=== PATIENT | female | born 1990 | race Two or more races ===

== ENCOUNTER 2023-12-28 15:29 | Inpatient (IN) | payer MEDICAID ==
[~2023-12-28] VITALS: Ht 149.9 cm; Wt 79.2 kg
[2023-12-28] MEDS: guaiFENesin-CODEINE Liq 5 ML UD PO ONE (16:59)
[2023-12-28] MEDS: DexAMETHasone SOD PHOS 10MG/1ML VIAL INJ IM ONE (16:59)
[2023-12-28 17:46] LABS: Basophils # (auto) 0.1 10 ^3/uL (0-0.2); Basophils % (auto) 0.7 % (0.0-2.0); Eosinophils # (auto) 0 10 ^3/uL (0-0.8); Eosinophils % (auto) 0.4 % (0.0-7.0); Hematocrit 31.1 % (36.0-46.0); Hemoglobin 9.4 g/dL (12.2-16.2); Lymphocytes # (auto) 1.5 10 ^3/uL (0.4-5.4); Lymphocytes % (auto) 14.6 % (10.0-50.0); Mean Corpuscular Hemoglobin 24.5 pg (28.0-32.0); Mean Corpuscular Hgb Conc. 30.3 g/dL (32.0-36.0); Mean Corpuscular Volume 80.8 fL (80.0-100.0); Monocytes # (auto) 0.6 10 ^3/uL (0-1.3); Monocytes % (auto) 5.4 % (0.0-12.0); Neutrophils # (auto) 8.2 10 ^3/uL (1.6-8.6); Neutrophils % (auto) 78.9 % (37.0-80.0); Nucleated Red Blood Cells % 0.3 %; Red Blood Cells 3.85 10^6/uL (4.0-5.20); Red Cell Distribution Width 17.6 % (11.8-14.3); White Blood Cell 10.4 10^3/uL (4.4-10.8)
[2023-12-28 17:59] LABS: Alanine Aminotransferase 127 U/L (7-40); Albumin 4.5 g/dL (3.2-4.8); Alkaline Phosphatase 469 U/L (46-116); Anion Gap 11 (5-15); Aspartate Aminotransferase 197 U/L (13-40); BUN/Creatinine Ratio 11.8 (10.0-20.0); Bilirubin, Total 1.9 mg/dL (0.2-1.0); Blood Urea Nitrogen 10 mg/dL (9-23); Calcium 9.3 mg/dL (8.7-10.4); Carbon Dioxide 22 mmol/L (20-30); Chloride 106 mmol/L (98-107); Glucose 113 mg/dL (74-106); Sodium 139 mmol/L (136-145); Total Protein 6.7 g/dL (5.7-8.2)
[2023-12-28] MEDS: ALBUTEROL SULF 2.5 MG/0.5ML(0.5%) NEB SOLN NEB ONE (18:10)
[2023-12-28] MEDS: IPRATROPIUM BROM 0.5 MG/2.5ML INH SOL NEB ONE (18:10)
[2023-12-28] MEDS: FUROSEMIDE 40 MG/4 ML VIAL IV ONE (20:38)
[2023-12-28 22:09] LABS: Urine Bacteria NONE SEEN /hpf (None Seen); Urine Blood TRACE /uL (Negative); Urine Clarity HAZY (Clear); Urine Color Yellow (Yellow); Urine Mucus FEW (None Seen); Urine Protein, UAD 2+ (Negative); Urine Specific Gravity 1.023 (1.001-1.035); Urine Urobilinogen Normal (Negative); Urine WBC 30 /hpf (0 - 5); Urine pH 5.5 (5.0-8.0)
[2023-12-28] MEDS ORDERED: IPRATROPIUM BROM 0.5 MG/2.5ML INH SOL NEB PRN (22:15)
[2023-12-28] MEDS ORDERED: ACETAMINOPHEN 325 MG TAB PO PRN (22:15)
[2023-12-28] MEDS ORDERED: ONDANSETRON HCL 4 MG/2 ML VIAL IV PRN (22:15)
[2023-12-28] MEDS ORDERED: ALBUTEROL SULF 2.5 MG/0.5ML(0.5%) NEB SOLN NEB PRN (22:15)
[2023-12-28 22:55] VITALS: BP 126/90; PULSE 96; RESP 20; TEMP 98.2; O2SAT 96
[2023-12-29] MEDS ORDERED: MORPHINE SULFATE INJ 2 MG/ml SYRG IV PRN
[2023-12-29] MEDS ORDERED: NITROGLYCERIN 0.4 MG SL TAB SL PRN
[2023-12-29] MEDS: HYDROcodone-ACET 5/325MG TAB PO PRN (04:30)
[2023-12-29 05:41] LABS: Basophils # (auto) 0 10 ^3/uL (0-0.2); Basophils % (auto) 0.2 % (0.0-2.0); Eosinophils # (auto) 0 10 ^3/uL (0-0.8); Mean Corpuscular Hemoglobin 24.8 pg (28.0-32.0); Monocytes # (auto) 0.2 10 ^3/uL (0-1.3); Red Cell Distribution Width 17.5 % (11.8-14.3)
[2023-12-29 05:43] LABS: Hemoglobin 10.3 g/dL (12.2-16.2); Lymphocytes # (auto) 0.8 10 ^3/uL (0.4-5.4); Lymphocytes % (auto) 7.3 % (10.0-50.0); Mean Corpuscular Hgb Conc. 31.2 g/dL (32.0-36.0); Mean Corpuscular Volume 79.4 fL (80.0-100.0); Monocytes % (auto) 1.8 % (0.0-12.0); Neutrophils # (auto) 10.5 10 ^3/uL (1.6-8.6); Neutrophils % (auto) 90.7 % (37.0-80.0); Red Blood Cells 4.15 10^6/uL (4.0-5.20); White Blood Cell 11.5 10^3/uL (4.4-10.8)
[2023-12-29 05:58] LABS: Alanine Aminotransferase 119 U/L (7-40); Alkaline Phosphatase 493 U/L (46-116); Anion Gap 12 (5-15); Aspartate Aminotransferase 119 U/L (13-40); BUN/Creatinine Ratio 12.8 (10.0-20.0); Blood Urea Nitrogen 11 mg/dL (9-23); Calcium 9.7 mg/dL (8.7-10.4); Carbon Dioxide 23 mmol/L (20-30); Chloride 104 mmol/L (98-107); Glucose 134 mg/dL (74-106); Potassium 3.9 mmol/L (3.5-5.1); Sodium 139 mmol/L (136-145)
[2023-12-29 05:59] LABS: Albumin 4.9 g/dL (3.2-4.8); Bilirubin, Total 2.1 mg/dL (0.2-1.0); Total Protein 7.5 g/dL (5.7-8.2)
[2023-12-29] MEDS: SODIUM CHLOR 0.9% PF (SALINE LOCK) 10ML VIAL/SYR IV SCH (06:02)
[2023-12-29 06:08] VITALS: O2SAT 98
[2023-12-29 08:21] VITALS: PULSE 88; RESP 18; O2SAT 94
[2023-12-29] MEDS: FUROSEMIDE 40 MG/4 ML VIAL IV SCH (10:00)
[2023-12-29] MEDS: DexAMETHasone SOD PHOS 10MG/1ML VIAL INJ IV SCH (10:13)
[2023-12-29] MEDS: cefTRIAXone 1GM/50ML D5W 50 ML IV SCH (12:03)
[2023-12-29 20:13] VITALS: PULSE 93; RESP 12; O2SAT 96
[2023-12-29] MEDS: MIDODRINE HCL 10 MG TAB PO SCH (20:23)
[2023-12-29] MEDS: LEVOTHYROXINE SODIUM 50 MCG TAB PO ONE (20:23)
[2023-12-30] VITALS (14 sets, daily range): BP systolic 104–136; BP diastolic 62–90; PULSE 75–95; RESP 16–19; TEMP 97.4–98.2; O2SAT 96–100
[2023-12-30] MEDS ORDERED: METO25TA36 PO (00:29)
[2023-12-30] MEDS ORDERED: LEV100T PO (00:29)
[2023-12-30] MEDS ORDERED: FURO40TA4 PO (00:29)
[2023-12-30] MEDS ORDERED: MID10T PO (00:29)
[2023-12-30] MEDS ORDERED: DAPA1TAB4 PO (00:29)
[2023-12-30] MEDS ORDERED: LOSA-533 PO (00:29)
[2023-12-30] MEDS ORDERED: MECL12.586 PO (00:29)
[2023-12-30] MEDS: METOPROLOL TARTRATE 25 MG TAB PO SCH (00:37)
[2023-12-30] MEDS: LEVOTHYROXINE SODIUM 50 MCG TAB PO SCH (06:53)
[2023-12-30 12:10] LABS: Basophils # (auto) 0 10 ^3/uL (0-0.2); Basophils % (auto) 0.1 % (0.0-2.0); Eosinophils # (auto) 0 10 ^3/uL (0-0.8); Hematocrit 33.8 % (36.0-46.0); Hemoglobin 10.3 g/dL (12.2-16.2); Lymphocytes # (auto) 1.3 10 ^3/uL (0.4-5.4); Lymphocytes % (auto) 6.2 % (10.0-50.0); Mean Corpuscular Hemoglobin 24.2 pg (28.0-32.0); Mean Corpuscular Hgb Conc. 30.4 g/dL (32.0-36.0); Mean Corpuscular Volume 79.7 fL (80.0-100.0); Monocytes # (auto) 0.6 10 ^3/uL (0-1.3); Monocytes % (auto) 3.1 % (0.0-12.0); Neutrophils # (auto) 18.4 10 ^3/uL (1.6-8.6); Neutrophils % (auto) 90.6 % (37.0-80.0); Nucleated Red Blood Cells % 0.1 %; Red Blood Cells 4.24 10^6/uL (4.0-5.20); Red Cell Distribution Width 17.8 % (11.8-14.3); White Blood Cell 20.3 10^3/uL (4.4-10.8)
[2023-12-30 12:24] LABS: Anion Gap 9 (5-15); Carbon Dioxide 27 mmol/L (20-30); Chloride 102 mmol/L (98-107); Potassium 3.9 mmol/L (3.5-5.1); Sodium 138 mmol/L (136-145)
[2023-12-30 12:26] LABS: Calcium 9.6 mg/dL (8.5-10.1)
[2023-12-30 12:30] LABS: Glucose 220 mg/dL (74-106); Triglycerides 108 mg/dL (< 150)
[2023-12-30 12:31] LABS: BUN/Creatinine Ratio 19.3 (10.0-20.0); Blood Urea Nitrogen 16 mg/dL (9-23); LDL Cholesterol 75 mg/dL (< 100)
[2023-12-30 12:33] LABS: Cholesterol 116 mg/dL (< 200); HDL Cholesterol 27 mg/dL (40-59)
[2023-12-30 12:48] LABS: Amphetamine Screen, Urine Neg (NEGATIVE); Barbiturate Scree,Urine Neg (NEGATIVE); Benzodiazephine Screen, Urine Neg (NEGATIVE); Cocaine Screen, Urine Neg (NEGATIVE); Opiate Scree,Urine Neg (NEGATIVE)
[2023-12-30 12:49] LABS: Cannabinoid Screen, Urine Pos (NEGATIVE); Phencyclidine Screen, Urine Neg (NEGATIVE)
[2023-12-30] MEDS: SPIRONOLACTONE 25 MG TAB PO SCH (17:50)
[2023-12-30] MEDS: FUROSEMIDE 40 MG/4 ML VIAL IV SCH (22:30)
[2023-12-30] MEDS: SACUBITRIL-VALSARTAN 24mg/26mg TAB PO SCH (22:32)
[2023-12-31] VITALS (16 sets, daily range): BP systolic 108–135; BP diastolic 56–97; PULSE 68–84; RESP 15–19; TEMP 97.6–98.3; O2SAT 96–100
[2023-12-31 06:05] LABS: Chloride 102 mmol/L (98-107); Sodium 138 mmol/L (136-145)
[2023-12-31 06:06] LABS: Anion Gap 7 (5-15); Carbon Dioxide 29 mmol/L (20-30)
[2023-12-31 06:07] LABS: Basophils # (auto) 0 10 ^3/uL (0-0.2); Basophils % (auto) 0.1 % (0.0-2.0); Calcium 9.1 mg/dL (8.5-10.1); Eosinophils # (auto) 0 10 ^3/uL (0-0.8); Hemoglobin 10.2 g/dL (12.2-16.2); Lymphocytes # (auto) 1.7 10 ^3/uL (0.4-5.4); Lymphocytes % (auto) 10.3 % (10.0-50.0); Monocytes # (auto) 0.6 10 ^3/uL (0-1.3); Monocytes % (auto) 3.4 % (0.0-12.0); Neutrophils % (auto) 86.2 % (37.0-80.0); Nucleated Red Blood Cells % 0.1 %
[2023-12-31 06:11] LABS: BUN/Creatinine Ratio 22.7 (10.0-20.0); Blood Urea Nitrogen 17 mg/dL (9-23); Glucose 156 mg/dL (74-106); Hematocrit 32.9 % (36.0-46.0); INR 1.11 (0.9-1.15); Mean Corpuscular Hemoglobin 24.7 pg (28.0-32.0); Mean Corpuscular Volume 79.6 fL (80.0-100.0); Neutrophils # (auto) 14.5 10 ^3/uL (1.6-8.6); Partial Thromboplastin Time 22.9 SEC (24.5-34.5); Prothrombin Time 11.6 sec (9.3-11.8); Red Blood Cells 4.14 10^6/uL (4.0-5.20); Red Cell Distribution Width 17.1 % (11.8-14.3); White Blood Cell 16.8 10^3/uL (4.4-10.8)
[2023-12-31] MEDS: IOHEXOL 350 MG/ML 100ML IJ ONE (08:23)
[2023-12-31] MEDS: LIDOCAINE 2%HCL (LOCAL ANESTH.) INJ 20ML MDV ONE (08:23)
[2023-12-31] MEDS: HEPARIN IN NS 1000Units/500mL 1,500 ML ONE (08:23)
[2023-12-31] MEDS: VERAPAMIL 2.5MG/ML INJ 2ML VIAL IV ONE (11:23)
[2023-12-31] MEDS: ANGIOMAX 250 MG VIAL IV ONE (11:23)
[2023-12-31] MEDS: SODIUM CHL 0.9% 0 ML ONE (11:23)
[2023-12-31] MEDS: MIDAZOLAM HCL 2MG/2ML 2ml VIAL (1mg/ml) ONE (11:23)
[2023-12-31] MEDS: IODIXANOL 320MG/ML 100ML BTL IV ONE (11:23)
[2023-12-31] MEDS: HEPARIN SODIUM (PORCINE) 5000 UNITS/ML 1ML VIAL ONE (11:23)
[2023-12-31] MEDS: fentaNYL CITRATE 100 MCG/2 ML VL ONE (11:23)
[2023-12-31] MEDS: EMPAGLIFLOZIN 10 MG TAB PO SCH (13:46)
[2023-12-31] MEDS: INFLUENZA QUAD 2023-2024 0.5 ML SYRG IM ONE (14:14)
[2023-12-31] MEDS: CEFEPIME 1GM/ 50ML 50 ML IV SCH (14:15)
[2023-12-31] MEDS: LEVOTHYROXINE SODIUM 100 MCG/5 ML INJ IV SCH (14:15)
[2023-12-31] MEDS: FERROUS SULFATE 325mg EC TAB PO SCH (17:09)
[2023-12-31] MEDS: DOCUSATE SOD 100 MG CAP PO PRN (21:39)
[2024-01-01] VITALS (10 sets, daily range): BP systolic 94–118; BP diastolic 58–77; PULSE 72–100; RESP 16–20; TEMP 97–98; O2SAT 95–100
[2024-01-01 05:49] LABS: Basophils # (auto) 0 10 ^3/uL (0-0.2); Basophils % (auto) 0.2 % (0.0-2.0); Eosinophils # (auto) 0 10 ^3/uL (0-0.8); Eosinophils % (auto) 0.3 % (0.0-7.0); Neutrophils # (auto) 8.6 10 ^3/uL (1.6-8.6); Nucleated Red Blood Cells % 0.1 %
[2024-01-01 05:50] LABS: Red Cell Distribution Width 17.4 % (11.8-14.3)
[2024-01-01 05:52] LABS: Hematocrit 37.5 % (36.0-46.0); Hemoglobin 11.7 g/dL (12.2-16.2); Lymphocytes # (auto) 2.7 10 ^3/uL (0.4-5.4); Lymphocytes % (auto) 22.1 % (10.0-50.0); Mean Corpuscular Hemoglobin 24.8 pg (28.0-32.0); Mean Corpuscular Hgb Conc. 31.1 g/dL (32.0-36.0); Mean Corpuscular Volume 79.7 fL (80.0-100.0); Monocytes # (auto) 0.8 10 ^3/uL (0-1.3); Monocytes % (auto) 6.7 % (0.0-12.0); Neutrophils % (auto) 70.7 % (37.0-80.0); Red Blood Cells 4.71 10^6/uL (4.0-5.20); White Blood Cell 12.1 10^3/uL (4.4-10.8)
[2024-01-01 06:01] LABS: Chloride 100 mmol/L (98-107); Potassium 3.8 mmol/L (3.5-5.1); Sodium 138 mmol/L (136-145)
[2024-01-01 06:02] LABS: Anion Gap 6 (5-15); Calcium 9.4 mg/dL (8.5-10.1); Carbon Dioxide 32 mmol/L (20-30)
[2024-01-01 06:07] LABS: BUN/Creatinine Ratio 20.3 (10.0-20.0); Blood Urea Nitrogen 16 mg/dL (9-23); Glucose 110 mg/dL (74-106)
[2024-01-01] MEDS: LEVOTHYROXINE SODIUM 100 MCG/5 ML INJ IV ONE (14:23)
[2024-01-02] VITALS (8 sets, daily range): BP systolic 93–110; BP diastolic 50–69; PULSE 78–90; RESP 16–22; TEMP 97.5–97.9; O2SAT 96–100
[2024-01-02 06:38] LABS: Chloride 99 mmol/L (98-107); Potassium 3.8 mmol/L (3.5-5.1); Sodium 136 mmol/L (136-145)
[2024-01-02 06:39] LABS: Anion Gap 10 (5-15); Carbon Dioxide 27 mmol/L (20-30)
[2024-01-02 06:40] LABS: Calcium 9.3 mg/dL (8.5-10.1)
[2024-01-02 06:44] LABS: BUN/Creatinine Ratio 19.3 (10.0-20.0); Blood Urea Nitrogen 16 mg/dL (9-23); Glucose 108 mg/dL (74-106)
[2024-01-02] MEDS: LEVOTHYROXINE SODIUM 100 MCG/5 ML INJ IV SCH (10:16)
[2024-01-02 14:29] LABS: Basophils # (auto) 0.1 10 ^3/uL (0-0.2); Hemoglobin 12.7 g/dL (12.2-16.2); Lymphocytes # (auto) 2.8 10 ^3/uL (0.4-5.4); Neutrophils # (auto) 9.4 10 ^3/uL (1.6-8.6); Nucleated Red Blood Cells % 0.1 %; Red Cell Distribution Width 17.4 % (11.8-14.3)
[2024-01-02 14:32] LABS: Basophils % (auto) 0.5 % (0.0-2.0); Eosinophils # (auto) 0.1 10 ^3/uL (0-0.8); Eosinophils % (auto) 0.9 % (0.0-7.0); Hematocrit 40.3 % (36.0-46.0); Lymphocytes % (auto) 21.6 % (10.0-50.0); Mean Corpuscular Hemoglobin 24.6 pg (28.0-32.0); Mean Corpuscular Hgb Conc. 31.5 g/dL (32.0-36.0); Mean Corpuscular Volume 78.2 fL (80.0-100.0); Monocytes # (auto) 0.6 10 ^3/uL (0-1.3); Monocytes % (auto) 4.9 % (0.0-12.0); Neutrophils % (auto) 72.1 % (37.0-80.0); Red Blood Cells 5.16 10^6/uL (4.0-5.20)
[2024-01-02] MEDS: LEVOTHYROXINE SODIUM 25 MCG TAB PO ONE (14:38)
[2024-01-02] MEDS: CEPHALEXIN 250 MG CAP PO SCH (18:28)
[2024-01-03 01:00] VITALS: BP 94/56; PULSE 90; RESP 18; TEMP 98; O2SAT 98
[2024-01-03 05:00] VITALS: BP 97/71; PULSE 89; RESP 18; TEMP 97.8; O2SAT 98
[2024-01-03 06:06] LABS: Anion Gap 6 (5-15); Carbon Dioxide 28 mmol/L (20-30); Chloride 99 mmol/L (98-107); Potassium 4.4 mmol/L (3.5-5.1); Sodium 133 mmol/L (136-145)
[2024-01-03 06:08] LABS: Calcium 9.5 mg/dL (8.7-10.4)
[2024-01-03 06:12] LABS: Glucose 105 mg/dL (74-106)
[2024-01-03 06:13] LABS: BUN/Creatinine Ratio 19.4 (10.0-20.0); Blood Urea Nitrogen 18 mg/dL (9-23)
[2024-01-03] MEDS: LEVOTHYROXINE SODIUM 25 MCG TAB PO SCH (06:43)
[2024-01-03 08:00] VITALS: PULSE 85
[2024-01-03 08:28] VITALS: O2SAT 97
[2024-01-03 08:53] VITALS: BP 104/75; PULSE 83; RESP 18; TEMP 97.7; O2SAT 98
[2024-01-03] MEDS: FUROSEMIDE 20 MG TAB PO SCH (09:31)
[2024-01-03] MEDS: METOPROLOL SUCCINATE XL 50 MG TAB PO SCH (09:35)
[2024-01-03] MEDS ORDERED: LEVO75TA6 PO (10:09)
[2024-01-03] MEDS ORDERED: CEPH500C PO (10:09)
[2024-01-03] MEDS ORDERED: FURO40TA4 PO (11:20)
[2024-01-03] MEDS ORDERED: LOSA-533 PO (11:20)
[2024-01-03] MEDS ORDERED: METO25TA36 PO (11:20)
[2024-01-03 12:58] VITALS: BP 105/64; PULSE 90; RESP 20; TEMP 98; O2SAT 94
== END 2024-01-03 17:00 | disposition home or self-care (01) | DRG 192 ==
LOC: ER 15:29 → TELE 23:52 → TELE-WESTW 12-29 22:28
PROVIDERS: ADMIT Nurse Practitioner Family; ATTEND Nurse Practitioner Acute Care
PROC: 4A023N7 Measurement of Cardiac Sampling and Pressure, Left Heart, Percutaneous Approach (ICD-10-PCS; principal; 2023-12-31)
PROC: B211YZZ Fluoroscopy of Multiple Coronary Arteries using Other Contrast (ICD-10-PCS; 2023-12-31)
DX: I11.0 Hypertensive heart disease with heart failure (principal); I42.0 Dilated cardiomyopathy; I50.43 Acute on chronic combined systolic (congestive) and diastolic (congestive) heart failure; L40.50 Arthropathic psoriasis, unspecified; N30.90 Cystitis, unspecified without hematuria; E66.9 Obesity, unspecified; E03.9 Hypothyroidism, unspecified; R73.03 Prediabetes; I34.0 Nonrheumatic mitral (valve) insufficiency; Q96.9 Turner's syndrome, unspecified; Z79.899 Other long term (current) drug therapy; Z68.35 Body mass index [BMI] 35.0-35.9, adult
CPT/HCPCS: 36415; 71045; 76705; 80048; 80053; 80061; 80307; 81001; 83036; 83880; 83970; 84436; 84443; 84480; 84484; 84702; 85025; 85610; 85730; 86850; 86900; 86901; 87040; 87086; 93306; 93458; 99152; G0378; J1100; J2250; J3490; Q9967

== ENCOUNTER 2024-06-27 14:32 | Emergency (ER) | payer MEDICAID ==
[~2024-06-27] VITALS: Ht 149.9 cm; Wt 85.0 kg
[~2024-06-27 14:32] MED LIST: CEPH500C PO; DAPA1TAB4 PO; FURO40TA4 PO; LEVO75TA6 PO; LOSA-533 PO; MECL12.586 PO; METO25TA36 PO; MID10T PO
[2024-06-27 16:09] LABS: Urine Bacteria None Seen /hpf (None Seen)
[2024-06-27 16:30] LABS: Urine Blood TRACE /uL (Negative); Urine Clarity Clear (Clear); Urine Color Yellow (Yellow); Urine Mucus FEW (None Seen); Urine Protein, UAD 1+ (Negative); Urine Specific Gravity 1.026 (1.001-1.035); Urine Urobilinogen Normal (Negative); Urine WBC <1 /hpf (0 - 5)
[2024-06-27 18:29] VITALS: BP 132/101; PULSE 84; RESP 16; TEMP 98.3; O2SAT 97
[2024-06-27] MEDS: KETOROLAC TROMETH 60MG/2ML VIAL IM ONE (18:32)
== END 2024-06-27 18:53 | disposition home or self-care (01) ==
LOC: ER 14:32
DX: M54.50 Low back pain, unspecified (principal); R10.2 Pelvic and perineal pain; R05.9 Cough, unspecified; R09.89 Other specified symptoms and signs involving the circulatory and respiratory systems; M19.90 Unspecified osteoarthritis, unspecified site; E11.9 Type 2 diabetes mellitus without complications; I50.9 Heart failure, unspecified; Z79.899 Other long term (current) drug therapy
CPT/HCPCS: 36415; 81001; 84702; 96372; 99283; J1885

== ENCOUNTER 2024-07-21 15:53 | Emergency (ER) | payer MEDICAID ==
[~2024-07-21] VITALS: Ht 149.9 cm; Wt 90.9 kg
[2024-07-21] MEDS ORDERED: GUAI-41 PO (17:04)
[2024-07-21] MEDS ORDERED: METH4PAK PO (17:04)
[2024-07-21] MEDS ORDERED: MELO7.5T7 PO (17:04)
[2024-07-21] MEDS ORDERED: AUG875T PO (17:04)
[2024-07-21] MEDS ORDERED: PROM1SOL4 PO (17:05)
[2024-07-21] MEDS: HYDROcodone-ACET 5/325MG TAB PO ONE (17:40)
[2024-07-21 17:51] VITALS: BP 122/74; TEMP 97.9
[2024-07-21 17:53] VITALS: PULSE 88; RESP 16; O2SAT 95
== END 2024-07-21 18:28 | disposition home or self-care (01) ==
LOC: ER 16:00
DX: M54.50 Low back pain, unspecified (principal); J01.10 Acute frontal sinusitis, unspecified; I50.9 Heart failure, unspecified; E11.9 Type 2 diabetes mellitus without complications; M19.90 Unspecified osteoarthritis, unspecified site; Z79.899 Other long term (current) drug therapy; Z79.84 Long term (current) use of oral hypoglycemic drugs

== ENCOUNTER 2025-07-06 17:31 | Inpatient (IN) | payer MEDICAID ==
[~2025-07-06] VITALS: Ht 132.1 cm; Wt 91.0 kg
[~2025-07-06 17:31] MED LIST changes: +AUG875T PO; +GUAI-41 PO; +MELO7.5T7 PO; +METH4PAK PO; +PROM1SOL4 PO
--- NOTE | 2025-07-06 18:31 | DVH ---
CHEST RADIOGRAPH Indication: fever, cough, sob Technique: XY CHEST PORTABLE COMPARISON: 12/28/2023 FINDINGS: The cardiac silhouette is enlarged. The lungs demonstrate bilateral patchy airspace opacities. Bilate ral nodular airspace opacities. 5.2 cm right midlung masslike opacity The pulmonary vasculature is pr ominent. There is no pleural effusion. There is no pneumothorax. Mitral valve clip. IMPRESSION: Cardiomegaly with pulmonary vascular congestion and bilateral patchy airspace opacities. Bilateral pulmonary nodular airspace opacities. Follow-up to resolution to exclude underlying mass/ metastatic disease. A 5.2 cm right midlung masslike opacity. Recommend CT chest to characterize.
[2025-07-06 19:12] LABS: Hematocrit 33.9 % (36.0-46.0); Hemoglobin 11.1 g/dL (12.2-16.2); Mean Corpuscular Hemoglobin 24.7 pg (28.0-32.0); Mean Corpuscular Volume 75.6 fL (80.0-100.0); Nucleated Red Blood Cells % 0.1 %
[2025-07-06 19:30] LABS: Anion Gap 13 (5-15); BUN/Creatinine Ratio 8.8 (10.0-20.0); Calcium 9.2 mg/dL (8.7-10.4); Carbon Dioxide 23 mmol/L (20-31); Chloride 99 mmol/L (98-107)
[2025-07-06 19:31] LABS: Bilirubin, Total 0.8 mg/dL (0.2-1.0)
[2025-07-06 19:36] LABS: Alanine Aminotransferase 50 U/L (7-40); Albumin 5.1 g/dL (3.2-4.8); Alkaline Phosphatase 189 U/L (46-116); Blood Urea Nitrogen 8 mg/dL (9-23); Glucose 135 mg/dL (74-106); Potassium 3.4 mmol/L (3.5-5.1); Sodium 135 mmol/L (136-145); Total Protein 8.4 g/dL (5.7-8.2)
[2025-07-06] MEDS: ACETAMINOPHEN 325 MG TAB PO ONE (20:35)
--- NOTE | 2025-07-06 20:57 | ED.PDOC ---
History of Present Illness HPI Comments HPI: 34 y/o F, with PMHx of tai's syndrome, arthritis, thyroid disease, CHF, and DM presents to the ED for CC of flu-like symptoms. Patient states, she has been experiencing flu-like symptoms including: fever, shortness of breath, sore-throat, cough, body-aches, and headaches x3days. Patient further relays, new onset symptoms of right-eye discharge. Patient denies sick contacts, chest pain, fever, or loss of taste and smell. No other symptoms or modifying factors are present at this time. Initial Vitals BP: HR: RR: O2 Sat: Temp: Past Medical history: TAI'S SYNDROME, ARTHRITIS, CHF, DM, THYROID DISEASE Past Surgical history: Mitraclip Medications: DENIES ANY Social History: Denies smoking, ETOH, and drug use. Allergies: NKDA MICHELLE: Multiple complaints, respiratory complaints HPI: Poor Historian. REVIEW OF SYSTEMS: CONSTITUTIONAL: Denies acute: fever, diaphoresis, chills, HEAD: Denies acute: , photophobia Eyes: Denies acute: Double vision, vision loss, eye pain, eye discharge. EARS: Denies acute: tinnitus, hearing loss, ear discharge, ear pain, THROAT: Denies acute: swelling, difficulty swallowing , pain with swallowing, change in voice. NECK: Denies acute: neck pain, neck swelling, stiff neck. HEART: Denies acute : chest pain, palpitations, LUNGS: Denies acute: , wheezing, , hemoptysis ABDOMEN: Denies acute: abdominal pain, Nausea, Vomiting, diarrhea, melena , hematemesis, hematochezia SKIN: Denies acute: rash, redness, lesions, itchiness. EXTREMITIES: Denies acute: calf pain, numbness, tingling, weakness, denies pain in extremity. Denies acute: Low back pain. Neuro: Denies acute: focal neurological deficit, motor or sensory focal neurological deficit, tremors, seizure like activity, confusion, dizziness, change in mental status, loss of bowel or bladder function, cauda equina like symptoms. : Denies acute: dysuria, hematuria, flank pain, increase in urinary frequency. PSYCH: Denies acute: hallucination, suicidal ideation, homicidal ideation. FEMALE: Denies acute: abnormal vaginal bleeding, foul odor, unusual discharge. PHYSICAL EXAM: General: ---moderate-----acute distress, awake and alert. Head: normocephalic, atraumatic. Neck: supple, trachea is midline, no swelling. Throat: Normal phonation. No exudates, no obstruction, no swelling Eyes:, no erythema, no proptosis, no icterus. Right eye purulent discharge with the associated conjunctivitis. Heart: regular rate, regular rhythm, no significant murmur appreciated. Lungs: Mild respiratory distress, Able to speak in full sentences. No wheezing, no rhonchi, no crackles. No stridors Clear to auscultation bilaterally. Abdomen: non tender to palpation, non distended, soft, no guarding, no rebound, + bowel sounds. Obese Neuro: Awake, Alert, oriented to name, self, situation, follows commands GCS=15. Speech is normal. Skin: no petechia, no purpura, no cyanosis, non-pale, not jaundice. Lower extremities: --trace bilateral- Pitting edema no deformity, no focal swelling, no calf TTP. Makes eye contact. moves all four extremities. Face: no apparent facial droop. Ambulating in the ED independently. ED COURSE: DISCLAIMER: This medical document was created using an electronic medical record system with voice recognition software and computerized dictation system. Although this document has been carefully reviewed, there might still be some phonetic and typographical errors. Occasional wrong-word or "sound-alike" substitutions may have occurred due to the inherent limitations of voice recognition software. These areas are purely typographical due to imperfections of the software programs and do not reflect any compromise in the patient's medical care. Please read the chart carefully and recognize, using context, where these substitutions have occurred. Chief Complaint: Flu like Time Seen by MD: 20:30 Primary Care Provider: NONE Reviewed Notes: Nurses Notes, Medications, Allergies Allergies: Coded Allergies: NO KNOWN ALLERGIES (Unverified , 12/28/23) Home Meds Active Scripts Doxycycline (Monohydrate) (Doxycycline) 100 Mg Tab, 100 MG PO BID for 3 Days, #6 TAB Prov:CRYSTAL WOODY RESIDENT 07/10/25 Levofloxacin Hemihydrate (LEVOFLOXACIN) 500 Mg Tab, 1 TAB PO DAILY, #3 TAB Prov:CRYSTAL WOODY RESIDENT 07/10/25 Guaifenesin (Guaifenesin) 100 Mg/5 Ml Ginette, 100 MG PO TID for 10 Days, #150 ML 0 Refills Prov:MONET MENCHACA ONLINE MERCHANDISING SPECIALIST 07/21/24 Methylprednisolone (Medrol Dosepak) 4 Mg Bartolome, 4 MG PO UD, #21 TAB 0 Refills UAD Prov:MONET MENCHACA ONLINE MERCHANDISING SPECIALIST 07/21/24 Meloxicam (Meloxicam) 7.5 Mg Tab, 1 TAB PO DAILY for 30 Days, #30 TAB 0 Refills Prov:MONET MENCHACA ONLINE MERCHANDISING SPECIALIST 07/21/24 Losartan Potassium (Losartan Potassium) 25 Mg Tab, 25 MG PO DAILY for 60 Days, #60 TAB Please start medication on 01/05/2024 given the patient was on Entresto while in the hospital Prov:ANITA RAYA NP 01/03/24 Metoprolol Succinate (Toprol Xl) 25 Mg Tab, 25 MG PO DAILY for 60 Days, #60 TAB Prov:ANITA RAYA ONLINE MERCHANDISING SPECIALIST 01/03/24 Furosemide (Furosemide) 40 Mg Tab, 40 MG PO DAILY for 60 Days, #60 TAB Prov:ANITA RAYA NP 01/03/24 Levothyroxine Sodium (Levothyroxine Sodium) 75 Mcg Tab, 175 MCG PO DAILY for 60 Days, #140 TAB Patient is to have 175 mcg/day. Please change order to accommodate available tablets in your pharmacy. Thank you Prov:ANITA RAYA NP 01/03/24 Reported Medications Meclizine Hcl (Meclizine Hcl) 12.5 Mg Tab, 25 MG PO DAILY, TAB 12/30/23 Dapagliflozin Propanediol (Farxiga) 10 Mg Tab, 10 MG PO DAILY, TAB 12/30/23 Information Source: Patient Mode of Arrival: Ambulatory Severity: Moderate Timing: Days Duration: Since onset Prehospital treatment: None Was a procedure done? Was a procedure done?: No Differential Dx Considerations may include: URI, PHARYNGITIS, SINUITIS, INFLUENZA, COVID-19 DDx include ACS, unstable angina, anxiety, PE, pneumothroax, neoplasm, cardiac ischemia, COPD, asthma, CHF, pleural effusion, tobacco abuse, pneumonia, hypoxia, hypercapnia, anemia., infection/sepsis., pulmonary edema. Asthma, Cardiac tamponade, infection. X-Ray, Labs, Meds, VS Vital Signs Date Time Temp Pulse Resp B/P (MAP) Pulse Ox O2 Delivery O2 Flow Rate FiO2 07/06/25 22:31 20 92 Nasal Cannula* 3 32 07/06/25 22:30 98.9 85 14 122/75 (91) 97 98.9 07/06/25 21:07 118/78 07/06/25 20:35 103.0 07/06/25 20:23 103.0 98 22 118/75 (89) 92 103.0 07/06/25 17:35 101.2 103 32 127/83 88 101.2 Lab Test 07/06/25 22:04 07/06/25 21:40 07/06/25 20:56 07/06/25 20:49 Range/Units Ammonia < 10 L 11-32 umol/L Prothrombin Time 11.1 9.3-11.8 sec Prothrombin Time INR 1.05 0.9-1.15 Activated Partial Thromboplast Time 30.2 24.5-34.5 SEC Hemoglobin A1c 6.1 H <5.7 % A1C Troponin I High Sensitivity 6 </=34 ng/L Urine Color Light-yellow Yellow Urine Clarity Clear Clear Urine pH 6.0 5.0-9.0 Urine Specific [place] 1.017 1.001-1.035 Urine Protein 2+ H Negative Urine Ketones Negative Negative Urine Blood 1+ H Negative /uL Urine Nitrite Negative Negative Urine Bilirubin Negative Negative Urine Urobilinogen Normal Negative mg/dL Urine Leukocyte Esterase Negative Negative /uL Urine RBC 1 0 - 4 /hpf Urine Microscopic WBC 2 0-5 /HPF Urine Squamous Epithelial Cells Few <5 /hpf Urine Bacteria None seen None Seen /hpf Urine Mucus Few None Seen Urine Glucose Normal Normal mg/dL Urine Opiates Screen Neg NEGATIVE Urine Fentanyl Screen Neg NEGATIVE Urine Barbiturates Screen Neg NEGATIVE Urine Phencyclidine Screen Neg NEGATIVE Urine Amphetamines Screen Neg NEGATIVE Urine Benzodiazepines Screen Neg NEGATIVE Urine Cocaine Screen Neg NEGATIVE Urine Cannabinoids Screen Pos NEGATIVE Influenza Type A Antigen Negative Negative Influenza Type B Antigen Positive Negative SARS-CoV-2 Antigen (Rapid) Negative NEGATIVE Test 07/06/25 19:30 07/06/25 18:43 Range/Units Troponin I High Sensitivity 5 6 </=34 ng/L White Blood Count 8.1 4.4-10.8 10^3/uL Red Blood Count 4.48 4.0-5.20 10^6/uL Hemoglobin 11.1 L 12.2-16.2 g/dL Hematocrit 33.9 L 36.0-46.0 % Mean Corpuscular Volume 75.6 L 80.0-100.0 fL Mean Corpuscular Hemoglobin 24.7 L 28.0-32.0 pg Mean Corpuscular Hemoglobin Concent 32.7 32.0-36.0 g/dL Red Cell Distribution Width 18.7 H 11.8-14.3 % Platelet Count 206 140-450 10^3/uL Mean Platelet Volume 6.9 6.9-10.8 fL Neutrophils (%) (Auto) 78.1 37.0-80.0 % Lymphocytes (%) (Auto) 12.7 10.0-50.0 % Monocytes (%) (Auto) 5.4 0.0-12.0 % Eosinophils (%) (Auto) 3.4 0.0-7.0 % Basophils (%) (Auto) 0.4 0.0-2.0 % Neutrophils # (Auto) 6.3 1.6-8.6 10 ^3/uL Lymphocytes # (Auto) 1.0 0.4-5.4 10 ^3/uL Monocytes # (Auto) 0.4 0-1.3 10 ^3/uL Eosinophils # (Auto) 0.3 0-0.8 10 ^3/uL Basophils # (Auto) 0 0-0.2 10 ^3/uL Nucleated Red Blood Cells 0.1 % Sodium Level 135 L 136-145 mmol/L Potassium Level 3.4 L 3.5-5.1 mmol/L Chloride Level 99 98-107 mmol/L Carbon Dioxide Level 23 20-31 mmol/L Anion Gap 13 5-15 Blood Urea Nitrogen 8 L 9-23 mg/dL Creatinine 0.91 0.550-1.02 mg/dL Glomerular Filtration Rate Calc 86 >90 mL/min BUN/Creatinine Ratio 8.8 L 10.0-20.0 Serum Glucose 135 H 74-106 mg/dL Lactic Acid Level 1.3 0.4-2.0 mmol/L Calcium Level 9.2 8.7-10.4 mg/dL Phosphorus Level 2.9 2.4-5.1 mg/dL Magnesium Level 2.1 1.6-2.6 mg/dL Total Bilirubin 0.8 0.2-1.0 mg/dL Aspartate Amino Transferase (AST) 70 H 13-40 U/L Alanine Aminotransferase (ALT) 50 H 7-40 U/L Alkaline Phosphatase 189 H 46-116 U/L C-Reactive Protein High Sensitivity > 20.00 H <1.0 mg/dL B-Type Natriuretic Peptide 146.14 0-100 pg/mL Total Protein 8.4 H 5.7-8.2 g/dL Albumin 5.1 H 3.2-4.8 g/dL Triglycerides Level 144 < 150 mg/dL Cholesterol Level 227 H < 200 mg/dL LDL Cholesterol 163 H < 100 mg/dL HDL Cholesterol 54 40-59 mg/dL Lipase 37 12-53 U/L Vitamin B12 Level 285 211-911 pg/mL Vitamin D 25-Hydroxy 6.0 L 30.0-100 ng/mL Thyroid Stimulating Hormone (TSH) 70.75 H 0.55-4.78 uIU/mL Free Thyroxine (T4) Calculated 0.22 L 0.89-1.76 ng/dL Free Triiodothyronine (T3) pg/mL < 0.2 L 2.3-4.2 pg/mL Microbiology Date/Time Source Procedure Growth Status 07/06/25 20:56 Voided Urine Urine Culture - Final Complete 07/06/25 18:50 Blood Blood Culture - Final NO GROWTH AFTER 5 DAYS OF INCUBATION. Complete 07/06/25 18:43 Blood Blood Culture - Final NO GROWTH AFTER 5 DAYS OF INCUBATION. Complete [address] [address] Ph: [phone] DIAGNOSTIC IMAGING Diagnostic Imaging Report : [id number] Signed PATIENT: PREETHI MARTINEZ ACCT: [id number] UNIT: [id number] : 1990 LOC: ER ROOM / BED: / AGE / SEX: 34 / F ADM STATUS: REG ER SERVICE 1749 ORDERING PHYSICIAN: RENETTA CHEATHAM DO PROCEDURE(s): CXRP - CHEST PORTABLE REASON: fever, cough, sob ORDER NUMBER(s): [id number], ACCESSION NUMBER(s): [id number] CHEST RADIOGRAPH Indication: fever, cough, sob Technique: XY CHEST PORTABLE COMPARISON: 12/28/2023 FINDINGS: The cardiac silhouette is enlarged. The lungs demonstrate bilateral patchy airspace opacities. Bilateral nodular airspace opacities. 5.2 cm right midlung masslike opacity The pulmonary vasculature is prominent. There is no pleural effusion. There is no pneumothorax. Mitral valve clip. IMPRESSION: Cardiomegaly with pulmonary vascular congestion and bilateral patchy airspace opacities. Bilateral pulmonary nodular airspace opacities. Follow-up to resolution to exclude underlying mass/ metastatic disease. A 5.2 cm right midlung masslike opacity. Recommend CT chest to characterize. ATED BY: JEANCARLOS GARCIA MD DICTATED DATE/TIME: 07/06/251831 SIGNED BY: JEANCARLOS GARCIA MD SIGNED DATE/TIME: 07/06/251831 CC: [place] [address] Ph: [phone] DIAGNOSTIC IMAGING Diagnostic Imaging Report : [id number] Signed PATIENT: PREETHI MARTINEZ ACCT: [id number] UNIT: [id number] : 1990 LOC: ER ROOM / BED: / AGE / SEX: 34 / F ADM STATUS: REG ER SERVICE 45 ORDERING PHYSICIAN: RENETTA CHEATHAM DO PROCEDURE(s): CTACH - CT ANGIO CHEST CONTRAST REASON: resp symtpoms ORDER NUMBER(s): [id number], ACCESSION NUMBER(s): [id number] CTA Chest with intravenous contrast INDICATION: resp symtpoms COMPARISON: None TECHNIQUE: Multidetector spiral CTA of the chest was performed of the chest with intravenous contrast. PULMONARY ANGIOGRAPHY PROTOCOL was utilized using a bolus- tracking technique centered on the main pulmonary artery. Axial, coronal and sagittal multiplanar and MIP reformats were performed. Radiation dose : 1. Chest: CTDI volume is 8.88 mGy. Dose-length product is 1016.75 mGy*cm The dose indicators for CT are the volume computed tomography (CT) dose index (CTDIvol) and the dose length product (DLP), and are measured in units of mGy and mGy-cm, respectively. These indicators are not patient dose, but values generated from the CT scanner acquisition factors. The report includes radiation exposure data for exposures received during this examination. Findings: Pulmonary artery: No pulmonary embolism Lower neck: Normal thyroid. Lungs: Extensive bilateral peribronchovascular and centrilobular ground glass opacities and more dense focal airspace disease. Heart/Vascular Structures: Normal heart size. No pericardial effusion. Lymph Nodes: Multiple mildly enlarged bilateral mediastinal and hilar lymph nodes measuring up to 1.4 cm in the right lower paratracheal region. Multiple mild enlarged lymph nodes in the left axilla more than the right axilla. Pleura: No pleural effusion or significant pneumothorax. Musculoskeletal: No acute osseous abnormality. Soft tissues: Normal. Upper abdomen: Limited portions of the upper abdomen are unremarkable. IMPRESSION: No pulmonary embolism. Extensive bilateral peribronchovascular and centrilobular ground glass opacities and more dense focal airspace disease concerning for infection. Multiple enlarged lymph nodes, presumably reactive although difficult to exclude an underlying lymphoproliferative disorder. Suggest follow-up CT in 3 months for reassessment. ATED BY: SHYANN DEE MD DICTATED DATE/TIME: 07/06/252208 SIGNED BY: SHYANN DEE MD SIGNED DATE/TIME: 07/06/252208 CC: Time of 1ST Reevaluation: 21:00 Reevaluation 1ST: Unchanged Patient Education/Counseling: Diagnosis, Treatment Family Education/Counseling: No Family Present Comments MDM: patient presented with the above HPI.---respiratory symptoms---workup was initiated. patient was found with the above mentioned diagnosis. the following medications were ordered: please refer to order lists of meds and tests obtained by myself Dr. Cheatham. Patient ED course and VS have been stabilized. Patient has been reassessed in the ED and remained in a stable condition. Pertinent incidental findings were discussed with the patient and/or family. Patient/family voices understanding and is agreeable with plan. Patient has been observed in the ED adequate length of time to insure improvement/stability. Escalation of care considered: Consideration of escalation to observation or admission Patient was ADMITTED to the medicine team for further evaluation and treatment of their presentation. All the reports of any imaging studies that were ordered by myself were reviewed by myself. SEPSIS Sepsis Screen Date sepsis recognized/suspect: Jul 06, 2025 Time Sepsis recognized/suspect: 1734 Recent Procedure: No On Antibiotic Therapy: No Respiratory Rate >20: Yes Heart Rate >90: Yes Temp<36 C (96.8 F) or >38.3 C: Yes SBP <90 or MAP <65 mmHG: No New Acute Mental Status Change: No Is the patient on CPAP, BIPAP,: No Physician Orders Workers Compensation Claims Examiner (07/06/25 ) Chest Portable (07/06/25 17:49) Ct Angio Chest Contrast (07/06/25 19:46) Vital Signs Date Time Temp Pulse Resp B/P (MAP) Pulse Ox O2 Delivery O2 Flow Rate FiO2 07/06/25 22:31 20 92 Nasal Cannula* 3 32 07/06/25 22:30 98.9 85 14 122/75 (91) 97 98.9 07/06/25 21:07 118/78 07/06/25 20:35 103.0 07/06/25 20:23 103.0 98 22 118/75 (89) 92 103.0 07/06/25 17:35 101.2 103 32 127/83 88 101.2 Laboratory Tests Test 07/06/25 18:43 Lactic Acid Level 1.3 mmol/L (0.4-2.0) White Blood Count 8.1 10^3/uL (4.4-10.8) Departure 1 Departure Time of Disposition: 20:57 Impression: Primary Impression: Pneumonia Additional Impressions: Lung mass CHF exacerbation Influenza B Conjunctivitis Disposition: ADMITTED INPATIENT Admit to: Tele Condition: Guarded e-Prescriptions Doxycycline (Monohydrate) (Doxycycline) 100 Mg Tab 100 MG PO BID for 3 Days, #6 TAB Prov: CRYSTAL WOODY RESIDENT 07/10/25 Levofloxacin Hemihydrate (LEVOFLOXACIN) 500 Mg Tab 1 TAB PO DAILY, #3 TAB Prov: CRYSTAL WOODY RESIDENT 07/10/25 Discharged With: Self Critical Care Note Critical Care Time?: Yes (45 min-critical care time only) I personally scribed for RENETTA CHEATHAM DO ([email or web address]) on 07/06/25 at 20:56. Electronically submitted by Sally Hansen ([email or web address]). I personally scribed for RENETTA CHEATHAM DO ([email or web address]) on 07/06/25 at 21:55. Electronically submitted by Sally Hansen [email or web address]). RENETTA CHEATHAM DO Jul 06, 2025 20:56
[2025-07-06] MEDS: SODIUM CHLORIDE 0.9% 1,000 ML IV ONE (21:00)
[2025-07-06] MEDS: FUROSEMIDE 40 MG/4 ML VIAL IV ONE (21:07)
--- NOTE | 2025-07-06 21:37 | DVHHPRES ---
History of Present Illness Resident Creating Document: NI MENA History of Present Illness This is a 34-year-old female with past medical history of HFrEF with MR s/p mitral clip, hypothyroidism, Hinds syndrome, psoriatic arthritis, CHIVO, presented to the ER with chief complain of cough with phlegm. She reported her symptoms started 3 days back, she complains of productive cough with 1 cup greenish phlegm produced daily. She also complained of associated headache, sore throat, fever, chills, which started with the onset of cough 3 days back. Today, she experienced difficulty in breathing and was gasping for air, which urged her visit to the ER. She reported her 5-year-old nephew was sick with cough. She and her nephew are immunized till date. Denies history of travel outside the country recently. Previous hospitalization: In May 2025 for mitral clip placement PMHx: HFrEF with MR s/p /mitral clip, hypothyroidism, Hinds syndrome, psoriatic arthritis, CHIVO PSHx: Mitral clip placement 05/2025 Family history: Grandmother- uterine cancer, grandfather- lung cancer Social history: Occasional alcohol, marijuana use. Denies smoking. Lives in home with family. Not currently sexually active. Full code, next of kin sister Bobbi. Home medication: Metoprolol succinate, dapagliflozin, furosemide, losartan, le vothyroxine Allergic history: No known allergies Patient was examined at bedside today. Vitals show Fever, tachycardia, tachy pnea. Patient is in visible distress, on 3 L oxygen. She is admitted for further evaluation and management. Cardiovascular: CHF Endocrine: Hypothyroidism Review of Systems Constitutional: Yes: Fever, Chills, Malaise Eyes: Conjunctivae inflammation ENT: Throat pain Respiratory: Cough, SOB with excertion Gastrointestinal: Nausea Skin: Lesions Allergies: Coded Allergies: NO KNOWN ALLERGIES (Unverified , 12/28/23) Exam Vital Signs Vital Signs Date Time Temp Pulse Resp B/P (MAP) Pulse Ox O2 Delivery O2 Flow Rate FiO2 07/06/25 21:07 118/78 07/06/25 20:35 103.0 07/06/25 20:23 98 22 92 Exam General: Patient alert and oriented in person, place and time. Patient following commands. Presents mild distress HEENT: Bilateral conjunctival erythema with purulent discharge from right eye. Erythema of posterior pharyngeal wall. Respiratory/pulmonary: On 3 L oxygen by nasal cannula. Bilateral mild wheeze in both lobes. Clear lungs bilaterally, vesicular murmurs present in almost all lung up, no associated crackles or wheezes. Cardiovascular: S1, S2, S3, diastolic murmur along left heart border. Abdomen: Abdomen nondistended, there is no pain to palpation in any of the abdominal quadrants, no palpable masses. Extremities: There is no peripheral edema present at the lower extremities. Skin: Scaly silver rash in left and right elbow, right arm. Neurological: Intact cranial nerves with no focal neurologic deficits Labs/Xrays Labs Test 07/06/25 20:56 07/06/25 20:49 07/06/25 19:30 07/06/25 18:43 Range/Units Troponin I High Sensitivity 5 </=34 ng/L White Blood Count 8.1 4.4-10.8 10^3/uL Red Blood Count 4.48 4.0-5.20 10^6/uL Hemoglobin 11.1 L 12.2-16.2 g/dL Hematocrit 33.9 L 36.0-46.0 % Mean Corpuscular Volume 75.6 L 80.0-100.0 fL Mean Corpuscular Hemoglobin 24.7 L 28.0-32.0 pg Mean Corpuscular Hemoglobin Concent 32.7 32.0-36.0 g/dL Red Cell Distribution Width 18.7 H 11.8-14.3 % Platelet Count 206 140-450 10^3/uL Mean Platelet Volume 6.9 6.9-10.8 fL Neutrophils (%) (Auto) 78.1 37.0-80.0 % Lymphocytes (%) (Auto) 12.7 10.0-50.0 % Monocytes (%) (Auto) 5.4 0.0-12.0 % Eosinophils (%) (Auto) 3.4 0.0-7.0 % Basophils (%) (Auto) 0.4 0.0-2.0 % Neutrophils # (Auto) 6.3 1.6-8.6 10 ^3/uL Lymphocytes # (Auto) 1.0 0.4-5.4 10 ^3/uL Monocytes # (Auto) 0.4 0-1.3 10 ^3/uL Eosinophils # (Auto) 0.3 0-0.8 10 ^3/uL Basophils # (Auto) 0 0-0.2 10 ^3/uL Nucleated Red Blood Cells 0.1 % Sodium Level 135 L 136-145 mmol/L Potassium Level 3.4 L 3.5-5.1 mmol/L Chloride Level 99 98-107 mmol/L Carbon Dioxide Level 23 20-31 mmol/L Anion Gap 13 5-15 Blood Urea Nitrogen 8 L 9-23 mg/dL Creatinine 0.91 0.550-1.02 mg/dL Glomerular Filtration Rate Calc 86 >90 mL/min BUN/Creatinine Ratio 8.8 L 10.0-20.0 Serum Glucose 135 H 74-106 mg/dL Lactic Acid Level 1.3 0.4-2.0 mmol/L Calcium Level 9.2 8.7-10.4 mg/dL Total Bilirubin 0.8 0.2-1.0 mg/dL Aspartate Amino Transferase (AST) 70 H 13-40 U/L Alanine Aminotransferase (ALT) 50 H 7-40 U/L Alkaline Phosphatase 189 H 46-116 U/L B-Type Natriuretic Peptide 146.14 0-100 pg/mL Total Protein 8.4 H 5.7-8.2 g/dL Albumin 5.1 H 3.2-4.8 g/dL SEPSIS Sepsis Screen Date sepsis recognized/suspect: Jul 06, 2025 Time Sepsis recognized/suspect: 1734 Recent Procedure: No On Antibiotic Therapy: No Respiratory Rate >20: Yes Heart Rate >90: Yes Temp<36 C (96.8 F) or >38.3 C: Yes SBP <90 or MAP <65 mmHG: No New Acute Mental Status Change: No Is the patient on CPAP, BIPAP,: No Physician Orders Independent Film Maker (07/06/25 ) Covid19 Antigen Paulette (07/06/25 ) Rapid Influenza A&B (07/06/25 17:49) Urinalysis (07/06/25 17:49) Chest Portable (07/06/25 17:49) Electrocardigram (07/06/25 17:49) Blood Culture (07/06/25 17:49) Troponin-I Hs (07/06/25 20:49) Ct Angio Chest Contrast (07/06/25 19:46) Vital Signs Date Time Temp Pulse Resp B/P (MAP) Pulse Ox O2 Delivery O2 Flow Rate FiO2 07/06/25 21:07 118/78 07/06/25 20:35 103.0 07/06/25 20:23 103.0 98 22 118/75 (89) 92 103.0 07/06/25 17:35 101.2 103 32 127/83 88 101.2 Laboratory Tests Test 07/06/25 18:43 Lactic Acid Level 1.3 mmol/L (0.4-2.0) White Blood Count 8.1 10^3/uL (4.4-10.8) Medications Medications Dose Ordered Sig/Merissa Route Start Time Stop Time Status Last Admin Dose Admin Acetaminophen 650 mg ONCE ONCE PO 07/06/25 17:45 07/06/25 17:46 DC 07/06/25 20:35 650 MG Ceftriaxone Sodium 50 ml @ 100 mls/hr ONCE ONCE IV 07/06/25 20:00 07/06/25 20:29 DC 07/06/25 21:00 100 MLS/HR Furosemide 40 mg ONCE ONCE IV 07/06/25 21:00 07/06/25 21:01 DC 07/06/25 21:07 40 MG Sodium Chloride 1,000 ml @ 1,000 mls/hr Q1H ONCE IV 07/06/25 18:00 07/06/25 18:59 DC 07/06/25 21:00 1,000 MLS/HR Assessment/Plan Assessment/Plan Sepsis due to pneumonia Gram-positive/Gram-negative associated with influenza type B Acute hypoxic respiratory failure due to pneumonia versus acute CHF ARDS Chest x-ray shows bilateral patchy opacities and a 5 cm mid lung mass CT angio ruled out pulmonary embolism, shows extensive bilateral peribronchovascular and centrilobular ground-glass opacity. Multiple enlarged lymph nodes, possibly reactive. Start vancomycin, cefepime 1 g b.i.d. Start oseltamivir 75 mg b.i.d. Blood culture, sputum culture ordered Holding off IV fluids boluses in context of HFrEF SpO2/FiO2 is 287 (less than 315). Indicated steroids at this point. Acute on Chronic diastolic heart failure (HFrEF with LVEF 35% on 12/2023) Status post Mitral clip placement History of Hinds syndrome X-ray shows cardiomegaly with pulmonary congestion BNP 146 Echocardiogram ordered Continue GDMT with losartan, empagliflozin, metoprolol succinate. Pending spironolactone Continue furosemide 20 mg IV daily Ruled out pulmonary embolism Possible lung mass/ multiple enlarged reactive lymph nodes CT angio ruled out pulmonary embolism, shows extensive bilateral peribronchovascular and centrilobular ground-glass opacity. Multiple enlarged lymph nodes, possibly reactive. Follow-up CT in 3 months as outpatient with PCP Bacterial Conjunctivitis Erythromycin q4 intraocular Hypothyroidism TSH 70.75; low T4, T3 Continue levothyroxine 175 mcg home dose; Non-compliant Psoriatic arthritis Psoriasis Elevated CRP Managed conservatively F/up with Cupola Hoist Operator ouutpatient (last seen 2 years ago) Diabetes Mellitus, new diagnosis History of impaired fasting glucose A1c 6.1 Monitor blood glucose Diabetes education Diabetic diet Obesity CHIVO BMI 37.8 Counseled on lifestyle and diet Uses at home 3 L oxygen HS as needed. Monitor for CHIVO complication, consider CPAP if needed Microcytic hypochromic anemia Vitamin-D deficiency Iron panel, ferritin, folic acid, haptoglobin, reticulocyte, stool occult blood ordered Replenish vitamin-D Hypokalemia Potassium supplemented Continue monitoring Transaminitis Hepatitis panel ordered Cannabinoid use disorder Toxicology positive for cannabinoids Advised absolute cannabis cessation DIET: Cardiac diet DVT PROPHYLAXIS: Lovenox CODE STATUS: Goals of care discussed with patient at bedside for more than 38 minutes. Full code DISPOSITION: Med/surge Patient's status and plan discussed with the patient. Case discussed with Dr. Higuera. Plan discussed with: Patient, Other (Nurses) Date of Service: Jul 06, 2025 Billing Provider: NI MENA Common Visit Codes: [id number] INP/OBS CARE (HIGH) Secondary Visit Codes: [id number] CARE PLAN 30 MINUTES NI MENA Jul 06, 2025 21:37 RAMIRO HAMMER Jul 07, 2025 01:21
[2025-07-06 21:55] LABS: COVID19 ANTIGEN SOFIA FIA NEGATIVE (NEGATIVE)
[2025-07-06 21:55] LABS: Urine Protein, UAD 2+ (Negative)
--- NOTE | 2025-07-06 22:11 | DVH ---
CTA Chest with intravenous contrast INDICATION: resp symtpoms COMPARISON: None TECHNIQUE: Multidetector spiral CTA of the chest was performed of the chest with intravenous contrast . PULMONARY ANGIOGRAPHY PROTOCOL was utilized using a bolus-tracking technique centered on the main p ulmonary artery. Axial, coronal and sagittal multiplanar and MIP reformats were performed. Radiation dose : 1. Chest: CTDI volume is 8.88 mGy. Dose-length product is 1016.75 mGy*cm The dose indicators for CT are the volume computed tomography (CT) dose index (CTDIvol) and the dose length product (DLP), and are measured in units of mGy and mGy-cm, respectively. These indicators are not patient dose, but values generated from the CT scanner acquisition factors. The report includes radiation exposure data for exposures received during this examination. Findings: Pulmonary artery: No pulmonary embolism Lower neck: Normal thyroid. Lungs: Extensive bilateral peribronchovascular and centrilobular ground glass opacities and more dens e focal airspace disease. Heart/Vascular Structures: Normal heart size. No pericardial effusion. Lymph Nodes: Multiple mildly enlarged bilateral mediastinal and hilar lymph nodes measuring up to 1.4 cm in the right lower paratracheal region. Multiple mild enlarged lymph nodes in the left axilla mor e than the right axilla. Pleura: No pleural effusion or significant pneumothorax. Musculoskeletal: No acute osseous abnormality. Soft tissues: Normal. Upper abdomen: Limited portions of the upper abdomen are unremarkable. IMPRESSION: No pulmonary embolism. Extensive bilateral peribronchovascular and centrilobular ground glass opacities and more dense focal airspace disease concerning for infection. Multiple enlarged lymph nodes, presumably reactive although difficult to exclude an underlying lympho proliferative disorder. Suggest follow-up CT in 3 months for reassessment.
[2025-07-06 22:22] LABS: Lipase 37 U/L (12-53)
[2025-07-06 22:23] LABS: Magnesium 2.1 mg/dL (1.6-2.6)
[2025-07-06 22:31] VITALS: RESP 20; O2SAT 92
[2025-07-06 22:31] LABS: INR 1.05 (0.9-1.15); Partial Thromboplastin Time 30.2 SEC (24.5-34.5); Prothrombin Time 11.1 sec (9.3-11.8)
[2025-07-06 22:41] LABS: Triglycerides 144 mg/dL (< 150)
[2025-07-06 22:43] LABS: HDL Cholesterol 54 mg/dL (40-59)
[2025-07-06 22:44] LABS: Cholesterol 227 mg/dL (< 200)
[2025-07-06] MEDS ORDERED: ONDANSETRON HCL 4 MG/2 ML VIAL IV PRN (23:00)
[2025-07-06] MEDS ORDERED: VANCOMYCIN PER PHARMACY 0 MG IV SCH (23:00)
[2025-07-06] MEDS: SODIUM CHLORIDE 0.9% 1,000 ML IV SCH (23:00)
[2025-07-06 23:30] LABS: Cannabinoid Screen, Urine Pos (NEGATIVE)
[2025-07-06] MEDS: VANCOMYCIN 1GM/250ML KIT 250 ML IV SCH (23:30)
[2025-07-06 23:31] LABS: Amphetamine Screen, Urine Neg (NEGATIVE); Barbiturate Scree,Urine Neg (NEGATIVE); Benzodiazephine Screen, Urine Neg (NEGATIVE); Opiate Scree,Urine Neg (NEGATIVE); Phencyclidine Screen, Urine Neg (NEGATIVE)
[2025-07-06 23:32] LABS: Cocaine Screen, Urine Neg (NEGATIVE)
[2025-07-06 23:36] LABS: Free T3 < 0.2 pg/mL (2.3-4.2); Free T4 (Free Thyroxine) 0.22 ng/dL (0.89-1.76)
[2025-07-06] MEDS: IOHEXOL 350 MG/ML 100ML IJ ONE (23:44)
[2025-07-06] MEDS: OSELTAMIVIR 75 MG CAP PO ONE (23:50)
[2025-07-06] MEDS: methylPREDNISolone SOD SUCC 40 MG/ML VL IV ONE (23:51)
[2025-07-06] MEDS: CEFEPIME 1GM/50ML 50 ML IV ONE (23:51)
[2025-07-06] MEDS: ENOXAPARIN SOD 40 MG/0.4 ML SYRINGE SC SCH (23:52)
[2025-07-07] VITALS (13 sets, daily range): BP systolic 108–120; BP diastolic 75–79; PULSE 57–90; RESP 11–20; TEMP 97.2–98.1; O2SAT 91–99
[2025-07-07 00:25] LABS: Base Excess -1.0 mmol/L (-2.0-3.0)
[2025-07-07] MEDS: POTASSIUM EFFERVESENT TAB 25 MEQ PO ONE (00:30)
[2025-07-07] MEDS: ERGOCALCIFEROL 50,000 UNIT(1.25MG) CAP PO SCH (01:00)
[2025-07-07 01:12] LABS: Iron 14.0 ug/dL (50-170)
[2025-07-07 01:15] LABS: Total Iron Binding Capacity 370.0 ug/dL (250-425)
[2025-07-07 01:18] LABS: Ferritin 144.9 ng/mL (10-291)
[2025-07-07] MEDS ORDERED: IPRATROPIUM BROM 0.5 MG/2.5ML INH SOL NEB SCH (03:30)
[2025-07-07] MEDS ORDERED: LEVALBUTEROL HCL 1.25 MG/3 ML NEB NEB SCH (03:30)
[2025-07-07] MEDS: guaiFENesin-CODEINE Liq 5 ML UD PO PRN (03:53)
[2025-07-07 05:03] LABS: Hemoglobin 11.3 g/dL (12.2-16.2); Nucleated Red Blood Cells % 0.0 %
[2025-07-07 05:06] LABS: Hematocrit 34.0 % (36.0-46.0); Mean Corpuscular Hemoglobin 25.0 pg (28.0-32.0); Mean Corpuscular Volume 75.3 fL (80.0-100.0)
[2025-07-07 05:21] LABS: Anion Gap 12 (5-15); BUN/Creatinine Ratio 8.2 (10.0-20.0); Carbon Dioxide 22 mmol/L (20-31); Chloride 100 mmol/L (98-107); Potassium 3.8 mmol/L (3.5-5.1); Total Protein 8.2 g/dL (5.7-8.2)
[2025-07-07 05:22] LABS: Alanine Aminotransferase 44 U/L (7-40); Albumin 4.9 g/dL (3.2-4.8); Alkaline Phosphatase 194 U/L (46-116); Bilirubin, Total 0.7 mg/dL (0.2-1.0); Blood Urea Nitrogen 7 mg/dL (9-23); Calcium 8.7 mg/dL (8.7-10.4); Glucose 202 mg/dL (74-106); Sodium 134 mmol/L (136-145)
[2025-07-07] MEDS: LEVOTHYROXINE SODIUM 50 MCG TAB PO SCH (05:23)
[2025-07-07] MEDS: ERYTHROMY OPTH OINT 5mg/gm 1gm or 3.5gm tube OP SCH (05:23)
[2025-07-07] MEDS: IPRATROPIUM BROM 0.5 MG/2.5ML INH SOL NEB SCH (06:11)
[2025-07-07] MEDS: LEVALBUTEROL HCL 1.25 MG/3 ML NEB NEB SCH (06:11)
[2025-07-07] MEDS ORDERED: LOSARTAN POTASSIUM 25 MG TAB PO SCH (10:00)
[2025-07-07] MEDS: FUROSEMIDE 20 MG/2 ML VIAL IV SCH (10:35)
[2025-07-07] MEDS: CEFEPIME 1GM/50ML 50 ML IV SCH (10:35)
[2025-07-07] MEDS: LOSARTAN POTASSIUM 25 MG TAB PO SCH (10:36)
[2025-07-07] MEDS: methylPREDNISolone SOD SUCC 40 MG/ML VL IV SCH (10:36)
[2025-07-07] MEDS: CLOPIDOGREL BISULFATE 75 MG TAB PO SCH (10:38)
[2025-07-07] MEDS: EMPAGLIFLOZIN 10 MG TAB PO SCH (10:38)
[2025-07-07] MEDS: SPIRONOLACTONE 25 MG TAB PO SCH (10:38)
[2025-07-07] MEDS: METOPROLOL SUCCINATE XL 50 MG TAB PO SCH (10:38)
[2025-07-07] MEDS: OSELTAMIVIR 75 MG CAP PO SCH (10:38)
--- NOTE | 2025-07-07 10:56 | ECG ---
[facility] Test Date: 2025-07-07 Test Time: 09:31:47 Pat Name: PREETHI MARTINEZ Department: [facility] ED Patient ID: [facility]-[id number] Room: 0238T Gender: F Credit Analysis Manager: DAVE : 1990 Requested By: RENETTA CHEATHAM Order Number: [id number] Reading MD: Ned Lopez Measurements Intervals [place] Rate: 74 P: 51 CA: 124 QRS: 89 QRSD: 96 T: -25 QT: 430 QTc: 477 Interpretive Statements Sinus rhythm Borderline repolarization abnormality Borderline prolonged QT interval Electronically Signed On 07-15-2025 21:33:14 PDT by Ned Lopez Please click the below link to view image of tracing.
[2025-07-07 11:30] LABS: Hepatitis B Surface Antigen Negative (Negative); Hepatitis C Antibody Negative (Negative)
[2025-07-07] MEDS: IRON SUCROSE COMPLEX 110 ML IV ONE (12:58)
--- NOTE | 2025-07-07 16:49 | DVHPNRES ---
Progress Note Date Seen: Jul 07, 2025 Resident Creating Document: MARIO DONG RESIDENT Medical Necessity Reason Pt with a Central, PICC or Fol: No Subjective Review of Systems Zuri Humphreys, 34-year-old female with past medical history of HFrEF with MR s/p mitral clip, hypothyroidism, Hinds syndrome, psoriatic arthritis, CHIVO, presented to the ER with chief complain of shortness of breaths, cough with phlegm. She reported her symptoms started 3 days back, she began having shortness of the breath which was associated with productive cough with 1 cup greenish phlegm produced daily. It was associated with headache, sore throat, fever, chills. Today, she experienced increasing difficulty in breathing and found herself gasping for air, which urged her visit to the ER. She reported her 5-year-old nephew was sick with whooping cough. She and her nephew are immunized till date. Denies history of travel outside the country recently. She also complains of watering of the right eye which is sticky and slightly itchy for the same duration of time that the shortness of breath has been present. Previous hospitalization: In May 2025 for mitral clip placement PMHx: HFrEF with MR s/p /mitral clip, hypothyroidism, Hinds syndrome, psoriatic arthritis, CHIVO PSHx: Mitral clip placement 05/2025 Family history: Grandmother- uterine cancer, grandfather- lung cancer Social history: Occasional alcohol, marijuana use. Denies smoking. Lives in home with family. Not currently sexually active. Full code, next of kin sister Bobbi. Home medication: Metoprolol succinate, dapagliflozin, furosemide, losartan, levothyroxine Allergic history: No known allergies ROS: 07/07/2025- patient was seen at the bedside and examined by me today. We will continue her antibiotics vancomycin and cefepime and for influenza oseltamivir 75 mg b.i.d. will be continued. Pending sputum and blood cultures as well as echocardiogram results. Objective vital signs Vital Sign Date Time Temp Pulse Resp B/P (MAP) Pulse Ox O2 Delivery O2 Flow Rate FiO2 07/07/25 12:37 97.4 57 17 108/75 (86) 94 97.4 07/07/25 12:04 Room Air* 0 21 medications Current Medications Medications Dose Ordered Sig/Merissa Route Start Time Stop Time Status Last Admin Dose Admin Sodium Chloride 1,000 ml @ 120 mls/hr Q8H20M IV 07/06/25 23:00 07/07/25 13:04 120 MLS/HR Acetaminophen 325 mg Q4HP PRN PO 07/06/25 23:00 Ondansetron HCl 4 mg Q4HP PRN IV 07/06/25 23:00 Enoxaparin Sodium 40 mg DAILY SC 07/06/25 23:00 07/07/25 10:36 40 MG Vancomycin HCl 0 ml @ 0 mls/hr UD IV 07/06/25 23:00 Cefepime HCl 50 ml @ 12.5 mls/hr Q12HR IV 07/07/25 10:00 07/07/25 10:35 12.5 MLS/HR Oseltamivir Phosphate 75 mg Q12HR PO 07/07/25 10:00 07/12/25 09:59 07/07/25 10:38 75 MG Empaglifozin 10 mg DAILY PO 07/07/25 10:00 07/07/25 10:38 10 MG Metoprolol Succinate 25 mg DAILY PO 07/07/25 10:00 07/07/25 10:38 25 MG Furosemide 20 mg DAILY IV 07/07/25 10:00 07/07/25 10:35 20 MG Levothyroxine Sodium 175 mcg QAM@0600 PO 07/07/25 06:00 07/07/25 05:23 175 MCG Methylprednisolone Sodium Succinate 40 mg BID IV 07/07/25 10:00 07/07/25 10:36 40 MG Ergocalciferol 50,000 unit Q7D PO 07/07/25 01:00 07/07/25 01:00 50,000 UNIT Erythromycin 1 applic Q4HR OP 07/07/25 06:00 07/07/25 12:58 1 APPLIC Guaifenesin/ Codeine Phosphate 5 ml Q4HPRN PRN PO 07/07/25 03:30 07/07/25 03:53 5 ML Ipratropium [place] 0.5 mg Q6HR NEB 07/07/25 06:00 07/07/25 11:54 0.5 MG Levalbuterol HCl 1.25 mg Q6HR NEB 07/07/25 06:00 07/07/25 11:54 1.25 MG Losartan Potassium 25 mg DAILY PO 07/07/25 10:00 07/07/25 10:36 25 MG Spironolactone 25 mg DAILY PO 07/07/25 10:00 07/07/25 10:38 25 MG Clopidogrel Bisulfate 75 mg DAILY PO 07/07/25 10:00 07/07/25 10:38 75 MG Examination General: Patient alert and oriented in person, place and time. Patient following commands. Presents mild distress HEENT: Bilateral conjunctival erythema with purulent discharge from right eye. Pterygium present in the right eye. Erythema of posterior pharyngeal wall. Respiratory/pulmonary: On 3 L oxygen by nasal cannula. Decreased sounds in both lobes. No associated wheeze or crackle heard Cardiovascular: S1, S2, S3, diastolic murmur along left heart border. Abdomen: Abdomen nondistended, there is no pain to palpation in any of the abdominal quadrants, no palpable masses. Extremities: There is no peripheral edema present at the lower extremities. Skin: Scaly silver rash in left and right elbow, right arm, as well as in bilateral extremities more in the knee region Neurological: Intact cranial nerves with no focal neurologic deficits laboratory and microbiology Laboratory Tests 07/07/25 04:40 Test 07/07/25 04:40 Range/Units Serum Glucose 202 H 74-106 mg/dL Microbiology Date/Time Source Procedure Growth Status 07/07/25 02:00 Sputum Gram Stain - Final Resulted 07/07/25 02:00 Sputum Respiratory Culture Pending Resulted Labs and/or images reviewed: Labs reviewed by me, Image(s) reviewed by me Problem List/Assessment/Plan Problem List/Assessment/Plan #Sepsis due to pneumonia Gram-positive/Gram-negative associated with influenza type B #Acute hypoxic respiratory failure due to pneumonia versus acute CHF #ARDS Chest x-ray shows bilateral patchy opacities and a 5 cm mid lung mass CT angio ruled out pulmonary embolism, shows extensive bilateral peribronchovascular and centrilobular ground-glass opacity. Multiple enlarged lymph nodes, possibly reactive. Med nebulization- ipratropium bromide, albuterol daily has scheduled Start vancomycin, cefepime 1 g b.i.d. Start oseltamivir 75 mg b.i.d. Blood culture, sputum culture ordered Holding off IV fluids boluses in context of HFrEF SpO2/FiO2 is 287 (less than 315). methylprednisolone 40 mg IV b.i.d. #Acute on Chronic diastolic heart failure (HFrEF with LVEF 35% on 12/2023) #Status post Mitral clip placement #History of Hinds syndrome X-ray shows cardiomegaly with pulmonary congestion BNP 146 Echocardiogram, pending Continue GDMT with losartan, empagliflozin, metoprolol succinate Continue furosemide 20 mg IV daily #Ruled out pulmonary embolism #Possible lung mass/ multiple enlarged reactive lymph nodes CT angio ruled out pulmonary embolism, shows extensive bilateral peribronchovascular and centrilobular ground-glass opacity. Multiple enlarged lymph nodes, possibly reactive. Follow-up CT in 3 months as outpatient with PCP #Bacterial Conjunctivitis Erythromycin q4 intraocular #Hypothyroidism TSH 70.75; low T4, T3 Continue levothyroxine 175 mcg home dose; Non-compliant #Psoriatic arthritis Psoriasis Elevated CRP Managed conservatively F/up with Ordnance Officer outpatient (last seen 2 years ago) #prediabetic, A1c 6.1 History of impaired fasting glucose Monitor blood glucose Diabetes education #Obesity CHIVO BMI 37.8 Counseled on lifestyle and diet Uses at home 3 L oxygen HS as needed. Monitor for CHIVO complication, consider CPAP if needed #Microcytic hypochromic anemia Iron 14, ferritin 144.9, % saturation 3.8, folic acid 15.38 1 dose of IV iron given stool occult blood ordered, pending #Vitamin-D deficiency Repleted #Hypokalemia Potassium supplemented Continue monitoring #Transaminitis Hepatitis panel ordered #Cannabinoid use disorder Toxicology positive for cannabinoids Advised absolute cannabis cessation DIET: Cardiac diet DVT PROPHYLAXIS: Lovenox CODE STATUS: Goals of care discussed with patient at bedside for more than 38 minutes. Full code DISPOSITION: Med/surge Patient's status and plan discussed with the patient. Case discussed with Dr. Noel. Plan discussed with: Patient, Other (Nurses) Plan discussed with: Patient, Other (rn) Date of Service: Jul 07, 2025 Billing Provider: LAKE NOEL MD Common Visit Codes: [id number] INP/OBS CARE(HIGH) MARIO DONG RESIDENT Jul 07, 2025 16:49 LAKE NOEL MD Jul 14, 2025 22:39
[2025-07-08] VITALS (15 sets, daily range): BP systolic 120–138; BP diastolic 81–106; PULSE 74–91; RESP 16–19; TEMP 97.2–98.4; O2SAT 90–99
[2025-07-08 05:12] LABS: Chloride 104 mmol/L (98-107); Sodium 140 mmol/L (136-145)
[2025-07-08 05:13] LABS: Anion Gap 13 (5-15); Calcium 8.7 mg/dL (8.7-10.4); Carbon Dioxide 23 mmol/L (20-31)
[2025-07-08 05:14] LABS: Potassium 3.2 mmol/L (3.5-5.1)
[2025-07-08 05:15] LABS: Hematocrit 33.2 % (36.0-46.0); Hemoglobin 11.0 g/dL (12.2-16.2); Mean Corpuscular Hemoglobin 25.0 pg (28.0-32.0); Mean Corpuscular Volume 75.5 fL (80.0-100.0); Nucleated Red Blood Cells % 0.1 %
[2025-07-08 05:18] LABS: BUN/Creatinine Ratio 11.9 (10.0-20.0); Blood Urea Nitrogen 10 mg/dL (9-23)
[2025-07-08 05:19] LABS: Glucose 185 mg/dL (74-106)
[2025-07-08] MEDS: FERROUS SULFATE 325mg EC TAB PO ONE (08:35)
[2025-07-08] MEDS: POTASSIUM CHL 10 Meq TABLET PO ONE (08:35)
[2025-07-08] MEDS ORDERED: VANCOMYCIN 1.25GM/250ML 250 ML IV SCH (12:00)
--- NOTE | 2025-07-08 12:29 | DVHPNRES ---
Progress Note Date Seen: Jul 08, 2025 Resident Creating Document: MARIO DONG RESIDENT Medical Necessity Reason Pt with a Central, PICC or Fol: No Subjective Review of Systems Zuri Humphreys, 34-year-old female with past medical history of HFrEF with MR s/p mitral clip, hypothyroidism, Hinds syndrome, psoriatic arthritis, CHIVO, presented to the ER with chief complain of shortness of breaths, cough with phlegm. She reported her symptoms started 3 days back, she began having shortness of the breath which was associated with productive cough with 1 cup greenish phlegm produced daily. It was associated with headache, sore throat, fever, chills. Today, she experienced increasing difficulty in breathing and found herself gasping for air, which urged her visit to the ER. She reported her 5-year-old nephew was sick with whooping cough. She and her nephew are immunized till date. Denies history of travel outside the country recently. She also complains of watering of the right eye which is sticky and slightly itchy for the same duration of time that the shortness of breath has been present. Previous hospitalization: In May 2025 for mitral clip placement PMHx: HFrEF with MR s/p /mitral clip, hypothyroidism, Hinds syndrome, psoriatic arthritis, CHIVO PSHx: Mitral clip placement 05/2025 Family history: Grandmother- uterine cancer, grandfather- lung cancer Social history: Occasional alcohol, marijuana use. Denies smoking. Lives in home with family. Not currently sexually active. Full code, next of kin sister Bobbi. Home medication: Metoprolol succinate, dapagliflozin, furosemide, losartan, levothyroxine Allergic history: No known allergies ROS: 07/07/2025- patient was seen at the bedside and examined by me today. We will continue her antibiotics vancomycin and cefepime and for influenza oseltamivir 75 mg b.i.d. will be continued. Pending sputum and blood cultures as well as echocardiogram results. 07/08/25: today the patient reports she feels better in her shortness of breath has decreased. She also has some cough which is expectorant and still greenish in color. We will continue her antibiotics given the g stain of the sputum showing Gram-positive rods, Gram-negative rods, Gram-positive cocci in pairs and we will continue oseltamivir as well. Objective vital signs Vital Sign Date Time Temp Pulse Resp B/P (MAP) Pulse Ox O2 Delivery O2 Flow Rate FiO2 07/08/25 11:35 87 18 98 07/08/25 11:30 120/81 07/08/25 11:25 Nasal Cannula* 3 32 07/08/25 09:00 98.4 98.4 Total Intake and Output 07/07/25 07/07/25 07/08/25 15:00 23:00 07:00 Intake Total 880 ml 360 ml 1410 ml Balance 880 ml 360 ml 1410 ml medications Current Medications Medications Dose Ordered Sig/Merissa Route Start Time Stop Time Status Last Admin Dose Admin Sodium Chloride 1,000 ml @ 120 mls/hr Q8H20M IV 07/06/25 23:00 07/08/25 05:39 120 MLS/HR Acetaminophen 325 mg Q4HP PRN PO 07/06/25 23:00 Ondansetron HCl 4 mg Q4HP PRN IV 07/06/25 23:00 Enoxaparin Sodium 40 mg DAILY SC 07/06/25 23:00 07/08/25 11:29 40 MG Vancomycin HCl 0 ml @ 0 mls/hr UD IV 07/06/25 23:00 Cefepime HCl 50 ml @ 12.5 mls/hr Q12HR IV 07/07/25 10:00 07/08/25 11:23 12.5 MLS/HR Oseltamivir Phosphate 75 mg Q12HR PO 07/07/25 10:00 07/12/25 09:59 07/08/25 11:29 75 MG Empaglifozin 10 mg DAILY PO 07/07/25 10:00 07/08/25 11:29 10 MG Metoprolol Succinate 25 mg DAILY PO 07/07/25 10:00 07/08/25 11:28 25 MG Furosemide 20 mg DAILY IV 07/07/25 10:00 07/08/25 11:30 20 MG Levothyroxine Sodium 175 mcg QAM@0600 PO 07/07/25 06:00 07/08/25 05:36 175 MCG Methylprednisolone Sodium Succinate 40 mg BID IV 07/07/25 10:00 07/08/25 11:29 40 MG Ergocalciferol 50,000 unit Q7D PO 07/07/25 01:00 07/07/25 01:00 50,000 UNIT Erythromycin 1 applic Q4HR OP 07/07/25 06:00 07/08/25 11:40 1 APPLIC Guaifenesin/ Codeine Phosphate 5 ml Q4HPRN PRN PO 07/07/25 03:30 07/07/25 23:30 5 ML Ipratropium Irma 0.5 mg Q6HR NEB 07/07/25 06:00 07/08/25 11:25 0.5 MG Levalbuterol HCl 1.25 mg Q6HR NEB 07/07/25 06:00 07/08/25 11:25 1.25 MG Losartan Potassium 25 mg DAILY PO 07/07/25 10:00 07/08/25 11:28 25 MG Spironolactone 25 mg DAILY PO 07/07/25 10:00 07/08/25 11:28 25 MG Clopidogrel Bisulfate 75 mg DAILY PO 07/07/25 10:00 07/08/25 11:27 75 MG Vancomycin HCl 250 ml @ 200 mls/hr Q12H IV 07/08/25 12:00 Examination General: Patient alert and oriented in person, place and time. Patient following commands. Presents mild distress HEENT: Bilateral conjunctival erythema with purulent discharge from right eye. Pterygium present in the right eye. Erythema of posterior pharyngeal wall. Respiratory/pulmonary: On 3 L oxygen by nasal cannula. Decreased sounds in both lobes. No associated wheeze or crackle heard Cardiovascular: S1, S2, S3, diastolic murmur along left heart border. Abdomen: Abdomen nondistended, there is no pain to palpation in any of the abdominal quadrants, no palpable masses. Extremities: There is no peripheral edema present at the lower extremities. Skin: Scaly silver rash in left and right elbow, right arm, as well as in bilateral extremities more in the knee region Neurological: Intact cranial nerves with no focal neurologic deficits laboratory and microbiology Laboratory Tests 07/08/25 04:49 Test 07/08/25 04:49 Range/Units Serum Glucose 185 H 74-106 mg/dL Microbiology Date/Time Source Procedure Growth Status 07/07/25 02:00 Sputum Gram Stain - Final Resulted 07/07/25 02:00 Sputum Respiratory Culture - Preliminary Resulted 07/06/25 20:56 Voided Urine Urine Culture - Preliminary Resulted 07/06/25 18:50 Blood Blood Culture - Preliminary NO GROWTH AFTER 24 HOURS OF INCUBATION. Resulted Labs and/or images reviewed: Labs reviewed by me, Image(s) reviewed by me Problem List/Assessment/Plan Problem List/Assessment/Plan #Sepsis due to pneumonia Gram-positive/Gram-negative associated with influenza type B #Acute hypoxic respiratory failure due to viral pneumonia with superimposed bacterial pneumonia versus acute CHF #ARDS Chest x-ray shows bilateral patchy opacities and a 5 cm mid lung mass CT angio ruled out pulmonary embolism, shows extensive bilateral peribronchovascular and centrilobular ground-glass opacity. Multiple enlarged lymph nodes, possibly reactive. Med nebulization- ipratropium bromide, albuterol daily has scheduled Start vancomycin, cefepime 1 g b.i.d. Start oseltamivir 75 mg b.i.d. Blood culture, sputum culture ordered Sputum gm stain shows Gram-positive cocci in pair, Gram-negative rods, Gram- positive rods Respiratory culture preliminary shows many growth normal oropharyngeal celeste #Acute on Chronic diastolic heart failure (HFrEF with LVEF 35% on 12/2023) #Status post Mitral clip placement #History of Hinds syndrome X-ray shows cardiomegaly with pulmonary congestion BNP 146 Echocardiogram, pending Continue GDMT with losartan, empagliflozin, metoprolol succinate Continue furosemide 20 mg IV daily #Ruled out pulmonary embolism #Possible lung mass/ multiple enlarged reactive lymph nodes CT angio ruled out pulmonary embolism, shows extensive bilateral peribronchovascular and centrilobular ground-glass opacity. Multiple enlarged lymph nodes, possibly reactive. Follow-up CT in 3 months as outpatient with PCP #Bacterial Conjunctivitis Erythromycin q4 intraocular #Hypothyroidism TSH 70.75; low T4, T3 Continue levothyroxine 175 mcg home dose; Non-compliant #Psoriatic arthritis Psoriasis Elevated CRP Managed conservatively F/up with Advertising Space Clerk outpatient (last seen 2 years ago) #prediabetic, A1c 6.1 History of impaired fasting glucose Monitor blood glucose Diabetes education #Obesity CHIVO BMI 37.8 Counseled on lifestyle and diet Uses at home 3 L oxygen HS as needed. Monitor for CHIVO complication, consider CPAP if needed #Microcytic hypochromic anemia Iron 14, ferritin 144.9, % saturation 3.8, folic acid 15.38 1 dose of IV iron given stool occult blood ordered, pending ferrous sulphate 325mg po daily once #Vitamin-D deficiency Repleted #Hypokalemia Potassium supplemented Continue monitoring #Transaminitis Hepatitis panel ordered #Cannabinoid use disorder Toxicology positive for cannabinoids Advised absolute cannabis cessation DIET: Cardiac diet DVT PROPHYLAXIS: Lovenox CODE STATUS: Goals of care discussed with patient at bedside for more than 38 minutes. Full code DISPOSITION: Med/surge Patient's status and plan discussed with the patient. Case discussed with Dr. Noel. Plan discussed with: Patient, Other (rn) My Orders My Orders Orders - MARIO DONG Procedure Category Date Status Time Animal Rehabilitator ORDERS 07/08/25 Transmitted 12:19 Transfer Orders XFER 07/08/25 Transmitted 12:21 Date of Service: Jul 08, 2025 Billing Provider: LAKE NOEL MD Common Visit Codes: [id number] INP/OBS CARE(HIGH) MARIO DONG RESIDENT Jul 08, 2025 12:29 LAKE NOEL MD Jul 14, 2025 22:44
[2025-07-08] MEDS: VANCOMYCIN 1.25GM/250ML 250 ML IV SCH (17:39)
[2025-07-08] MEDS: ACETAMINOPHEN 325 MG TAB PO PRN (22:07)
[2025-07-09] VITALS (17 sets, daily range): BP systolic 121–135; BP diastolic 88–98; PULSE 68–88; RESP 16–19; TEMP 90–98.1; O2SAT 92–100
[2025-07-09 05:35] LABS: Hematocrit 34.7 % (36.0-46.0); Hemoglobin 11.4 g/dL (12.2-16.2); Mean Corpuscular Hemoglobin 24.4 pg (28.0-32.0); Mean Corpuscular Volume 74.3 fL (80.0-100.0)
[2025-07-09 05:43] LABS: Anion Gap 12 (5-15); Carbon Dioxide 23 mmol/L (20-31); Chloride 104 mmol/L (98-107); Potassium 4.0 mmol/L (3.5-5.1); Sodium 139 mmol/L (136-145)
[2025-07-09 05:44] LABS: Calcium 9.1 mg/dL (8.7-10.4)
[2025-07-09 05:49] LABS: BUN/Creatinine Ratio 17.7 (10.0-20.0); Blood Urea Nitrogen 14 mg/dL (9-23); Glucose 173 mg/dL (74-106)
[2025-07-09 06:31] LABS: Total Cells Counted 100.0 (100)
--- NOTE | 2025-07-09 11:20 | DVH ---
INDICATION: sob TECHNIQUE: Frontal view of the chest. COMPARISON: CT CT ANGIO CHEST CONTRAST on DOS: 07/06/25, XY CHEST PORTABLE on DOS: 07/06/25, XY CHEST X RAY 1 VIEW on DOS: 12/28/23, XR CHEST 2 VIEWS on DOS: 06/09/23 FINDINGS: Cardiomegaly with pulmonary vascular congestion and bilateral patchy airspace opacities. Stable Bila teral pulmonary nodular airspace opacities. Follow-up to resolution to exclude underlying mass/ metas tatic disease. A 5.2 cm right midlung masslike opacity. Recommend CT chest to characterize.. IMPRESSION: 1. Stable Bilateral pulmonary nodular airspace opacities. Follow-up to resolution to exclude underly ing mass/ metastatic disease. A 5.2 cm right midlung masslike opacity. Recommend CT chest to shadi mendez..
--- NOTE | 2025-07-09 12:53 | DVHPNRES ---
Progress Note Date Seen: Jul 09, 2025 Resident Creating Document: MARIO DONG RESIDENT Medical Necessity Reason Pt with a Central, PICC or Fol: No Subjective Review of Systems Zuri Humphreys, 34-year-old female with past medical history of HFrEF with MR s/p mitral clip, hypothyroidism, Hinds syndrome, psoriatic arthritis, CHIVO, presented to the ER with chief complain of shortness of breaths, cough with phlegm. She reported her symptoms started 3 days back, she began having shortness of the breath which was associated with productive cough with 1 cup greenish phlegm produced daily. It was associated with headache, sore throat, fever, chills. Today, she experienced increasing difficulty in breathing and found herself gasping for air, which urged her visit to the ER. She reported her 5-year-old nephew was sick with whooping cough. She and her nephew are immunized till date. Denies history of travel outside the country recently. She also complains of watering of the right eye which is sticky and slightly itchy for the same duration of time that the shortness of breath has been present. Previous hospitalization: In May 2025 for mitral clip placement PMHx: HFrEF with MR s/p /mitral clip, hypothyroidism, Hinds syndrome, psoriatic arthritis, CHIVO PSHx: Mitral clip placement 05/2025 Family history: Grandmother- uterine cancer, grandfather- lung cancer Social history: Occasional alcohol, marijuana use. Denies smoking. Lives in home with family. Not currently sexually active. Full code, next of kin sister Bobbi. Home medication: Metoprolol succinate, dapagliflozin, furosemide, losartan, levothyroxine Allergic history: No known allergies ROS: 07/07/2025- patient was seen at the bedside and examined by me today. We will continue her antibiotics vancomycin and cefepime and for influenza oseltamivir 75 mg b.i.d. will be continued. Pending sputum and blood cultures as well as echocardiogram results. 07/08/25: today the patient reports she feels better in her shortness of breath has decreased. She also has some cough which is expectorant and still greenish in color. We will continue her antibiotics given the g stain of the sputum showing Gram-positive rods, Gram-negative rods, Gram-positive cocci in pairs and we will continue oseltamivir as well. 07/09/2025: Today the patient reports feeling better. She has no active new complaints. We will continue her antibiotics. Objective vital signs Vital Sign Date Time Temp Pulse Resp B/P (MAP) Pulse Ox O2 Delivery O2 Flow Rate FiO2 07/09/25 12:50 98.1 88 16 128/94 (105) 95 98.1 07/09/25 11:42 Nasal Cannula 3.0 07/09/25 11:42 28 Total Intake and Output 07/08/25 07/08/25 07/09/25 15:00 23:00 07:00 Intake Total 650 ml 1600 ml Balance 650 ml 1600 ml medications Current Medications Medications Dose Ordered Sig/Merissa Route Start Time Stop Time Status Last Admin Dose Admin Acetaminophen 325 mg Q4HP PRN PO 07/06/25 23:00 07/08/25 22:07 325 MG Ondansetron HCl 4 mg Q4HP PRN IV 07/06/25 23:00 Enoxaparin Sodium 40 mg DAILY SC 07/06/25 23:00 07/09/25 09:40 40 MG Vancomycin HCl 0 ml @ 0 mls/hr UD IV 07/06/25 23:00 Cefepime HCl 50 ml @ 12.5 mls/hr Q12HR IV 07/07/25 10:00 07/09/25 09:37 12.5 MLS/HR Oseltamivir Phosphate 75 mg Q12HR PO 07/07/25 10:00 07/12/25 09:59 07/09/25 09:39 75 MG Empaglifozin 10 mg DAILY PO 07/07/25 10:00 07/09/25 09:39 10 MG Metoprolol Succinate 25 mg DAILY PO 07/07/25 10:00 07/09/25 09:39 25 MG Furosemide 20 mg DAILY IV 07/07/25 10:00 07/09/25 09:38 20 MG Levothyroxine Sodium 175 mcg QAM@0600 PO 07/07/25 06:00 07/09/25 05:50 175 MCG Methylprednisolone Sodium Succinate 40 mg BID IV 07/07/25 10:00 07/09/25 09:38 40 MG Ergocalciferol 50,000 unit Q7D PO 07/07/25 01:00 07/07/25 01:00 50,000 UNIT Erythromycin 1 applic Q4HR OP 07/07/25 06:00 07/09/25 09:40 1 APPLIC Guaifenesin/ Codeine Phosphate 5 ml Q4HPRN PRN PO 07/07/25 03:30 07/08/25 22:06 5 ML Ipratropium Burton 0.5 mg Q6HR NEB 07/07/25 06:00 07/09/25 11:42 0.5 MG Levalbuterol HCl 1.25 mg Q6HR NEB 07/07/25 06:00 07/09/25 11:42 1.25 MG Losartan Potassium 25 mg DAILY PO 07/07/25 10:00 07/09/25 09:39 25 MG Spironolactone 25 mg DAILY PO 07/07/25 10:00 07/09/25 09:39 25 MG Clopidogrel Bisulfate 75 mg DAILY PO 07/07/25 10:00 07/09/25 09:39 75 MG Vancomycin HCl 250 ml @ 200 mls/hr Q12H IV 07/08/25 17:00 07/09/25 05:55 200 MLS/HR Examination General: Patient alert and oriented in person, place and time. Patient following commands. Presents mild distress HEENT: Bilateral conjunctival erythema with purulent discharge from right eye. Pterygium present in the right eye. Erythema of posterior pharyngeal wall. Respiratory/pulmonary: On 3 L oxygen by nasal cannula. Decreased sounds in both lobes. No associated wheeze or crackle heard Cardiovascular: S1, S2, S3, diastolic murmur along left heart border. Abdomen: Abdomen nondistended, there is no pain to palpation in any of the abdominal quadrants, no palpable masses. Extremities: There is no peripheral edema present at the lower extremities. Skin: Scaly silver rash in left and right elbow, right arm, as well as in bilateral extremities more in the knee region Neurological: Intact cranial nerves with no focal neurologic deficits laboratory and microbiology Laboratory Tests 07/09/25 04:58 Test 07/09/25 04:58 Range/Units Serum Glucose 173 H 74-106 mg/dL Microbiology Date/Time Source Procedure Growth Status 07/07/25 02:00 Sputum Gram Stain - Final Resulted 07/07/25 02:00 Sputum Respiratory Culture - Preliminary Resulted 07/06/25 20:56 Voided Urine Urine Culture - Final Complete 07/06/25 18:50 Blood Blood Culture - Preliminary NO GROWTH AFTER 48 HOURS OF INCUBATION. Resulted Labs and/or images reviewed: Labs reviewed by me, Image(s) reviewed by me Problem List/Assessment/Plan Problem List/Assessment/Plan #Sepsis due to pneumonia Gram-positive/Gram-negative associated with influenza type B #Acute hypoxic respiratory failure due to viral pneumonia with superimposed bacterial pneumonia versus acute CHF #ARDS Chest x-ray shows bilateral patchy opacities and a 5 cm mid lung mass CT angio ruled out pulmonary embolism, shows extensive bilateral peribronchovascular and centrilobular ground-glass opacity. Multiple enlarged lymph nodes, possibly reactive. Med nebulization- ipratropium bromide, albuterol daily has scheduled Start vancomycin, cefepime 1 g b.i.d. Start oseltamivir 75 mg b.i.d. Blood culture, sputum culture ordered Holding off IV fluids boluses in context of HFrEF SpO2/FiO2 is 287 (less than 315). methylprednisolone 40 mg IV b.i.d. Sputum gm stain shows Gram-positive cocci in pair, Gram-negative rods, Gram- positive rods Respiratory culture preliminary shows many growth normal oropharyngeal celeste #Acute on Chronic diastolic heart failure (HFrEF with LVEF 35% on 12/2023) #Status post Mitral clip placement #History of Hinds syndrome X-ray shows cardiomegaly with pulmonary congestion BNP 146 Echocardiogram, pending Continue GDMT with losartan, empagliflozin, metoprolol succinate Continue furosemide 20 mg IV daily #Ruled out pulmonary embolism #Possible lung mass/ multiple enlarged reactive lymph nodes CT angio ruled out pulmonary embolism, shows extensive bilateral peribronchovascular and centrilobular ground-glass opacity. Multiple enlarged lymph nodes, possibly reactive. Follow-up CT in 3 months as outpatient with PCP #Bacterial Conjunctivitis Erythromycin q4 intraocular #Hypothyroidism TSH 70.75; low T4, T3 Continue levothyroxine 175 mcg home dose; Non-compliant #Psoriatic arthritis Psoriasis Elevated CRP Managed conservatively F/up with Access Manager outpatient (last seen 2 years ago) #prediabetic, A1c 6.1 History of impaired fasting glucose Monitor blood glucose Diabetes education #Obesity CHIVO BMI 37.8 Counseled on lifestyle and diet Uses at home 3 L oxygen HS as needed. Monitor for CHIVO complication, consider CPAP if needed #Microcytic hypochromic anemia Iron 14, ferritin 144.9, % saturation 3.8, folic acid 15.38 1 dose of IV iron given stool occult blood ordered, pending ferrous sulphate 325mg po daily once #Vitamin-D deficiency Repleted #Hypokalemia Potassium supplemented Continue monitoring #Transaminitis Hepatitis panel ordered #Cannabinoid use disorder Toxicology positive for cannabinoids Advised absolute cannabis cessation DIET: Cardiac diet DVT PROPHYLAXIS: Lovenox CODE STATUS: Goals of care discussed with patient at bedside for more than 38 minutes. Full code DISPOSITION: Med/surge Patient's status and plan discussed with the patient. Case discussed with Dr. Noel. Plan discussed with: Patient, Other (rn) My Orders My Orders Orders - MARIO DONG RESIDENT Procedure Category Date Status Time Dietary NOTICE 07/08/25 Transmitted Recommendations 14:29 Dietary Evaluation Review Recommendations by RD: Decrease Calorie Intake Comments: Nutrition Recommendation: 1) CCHO 60 + cardiac diet 2) Refer Director Cardiovascular for diabetes education as A1c 6.1% Expected Outcomes/Goals: To meet >75% estimated needs Lab values to improve Fu 3-5 days Date of Service: Jul 09, 2025 Billing Provider: LAKE NOEL MD Common Visit Codes: [id number] INP/OBS CARE(HIGH) MARIO DONG Jul 09, 2025 12:53 LAKE NOEL MD Jul 14, 2025 23:15
[2025-07-10] VITALS (13 sets, daily range): BP systolic 115–134; BP diastolic 74–97; PULSE 70–84; RESP 16–20; TEMP 96.6–98.5; O2SAT 93–100
[2025-07-10 07:13] LABS: Hematocrit 35.2 % (36.0-46.0); Hemoglobin 11.6 g/dL (12.2-16.2); Mean Corpuscular Hemoglobin 24.7 pg (28.0-32.0); Mean Corpuscular Volume 75.1 fL (80.0-100.0); Nucleated Red Blood Cells % 0.0 %
[2025-07-10 07:22] LABS: Anion Gap 13 (5-15); Carbon Dioxide 22 mmol/L (20-31); Chloride 101 mmol/L (98-107); Potassium 4.1 mmol/L (3.5-5.1)
[2025-07-10 07:23] LABS: Calcium 8.9 mg/dL (8.7-10.4)
[2025-07-10 07:28] LABS: BUN/Creatinine Ratio 21.3 (10.0-20.0); Blood Urea Nitrogen 17 mg/dL (9-23)
[2025-07-10 07:30] LABS: Glucose 211 mg/dL (74-106); Sodium 136 mmol/L (136-145)
[2025-07-10] MEDS: VANCOMYCIN 1.25GM/250ML 250 ML IV SCH (09:24)
[2025-07-10] MEDS: FERROUS SULFATE 325mg EC TAB PO ONE (11:13)
--- NOTE | 2025-07-10 11:59 | DVHPNRES ---
Progress Note Date Seen: Jul 10, 2025 Resident Creating Document: MARIO DONG RESIDENT Medical Necessity Reason Pt with a Central, PICC or Fol: No Subjective Review of Systems Zuri Humphreys, 34-year-old female with past medical history of HFrEF with MR s/p mitral clip, hypothyroidism, Hinds syndrome, psoriatic arthritis, CHIVO, presented to the ER with chief complain of shortness of breaths, cough with phlegm. She reported her symptoms started 3 days back, she began having shortness of the breath which was associated with productive cough with 1 cup greenish phlegm produced daily. It was associated with headache, sore throat, fever, chills. Today, she experienced increasing difficulty in breathing and found herself gasping for air, which urged her visit to the ER. She reported her 5-year-old nephew was sick with whooping cough. She and her nephew are immunized till date. Denies history of travel outside the country recently. She also complains of watering of the right eye which is sticky and slightly itchy for the same duration of time that the shortness of breath has been present. Previous hospitalization: In May 2025 for mitral clip placement PMHx: HFrEF with MR s/p /mitral clip, hypothyroidism, Hinds syndrome, psoriatic arthritis, CHIVO PSHx: Mitral clip placement 05/2025 Family history: Grandmother- uterine cancer, grandfather- lung cancer Social history: Occasional alcohol, marijuana use. Denies smoking. Lives in home with family. Not currently sexually active. Full code, next of kin sister Bobbi. Home medication: Metoprolol succinate, dapagliflozin, furosemide, losartan, levothyroxine Allergic history: No known allergies ROS: 07/07/2025- patient was seen at the bedside and examined by me today. We will continue her antibiotics vancomycin and cefepime and for influenza oseltamivir 75 mg b.i.d. will be continued. Pending sputum and blood cultures as well as echocardiogram results. 07/08/25: today the patient reports she feels better in her shortness of breath has decreased. She also has some cough which is expectorant and still greenish in color. We will continue her antibiotics given the g stain of the sputum showing Gram-positive rods, Gram-negative rods, Gram-positive cocci in pairs and we will continue oseltamivir as well. 07/09/2025: Today the patient reports feeling better. She has no active new complaints. We will continue her antibiotics. 07/10/2025: Patient reports feeling better but still has like green colored sputum production. We have stopped her steroids. With WBC count of 19.4 We are her repeating a blood culture and sputum culture as well. Azithromycin has also been started. Objective vital signs Vital Sign Date Time Temp Pulse Resp B/P (MAP) Pulse Ox O2 Delivery O2 Flow Rate FiO2 07/10/25 10:00 93 Nasal Cannula* 2 28 07/10/25 09:30 127/97 07/10/25 09:00 96.6 79 16 96.6 Total Intake and Output 07/09/25 07/09/25 07/10/25 15:00 23:00 07:00 Intake Total 50 ml 1290 ml 670 ml Balance 50 ml 1290 ml 670 ml medications Current Medications Medications Dose Ordered Sig/Merissa Route Start Time Stop Time Status Last Admin Dose Admin Acetaminophen 325 mg Q4HP PRN PO 07/06/25 23:00 07/09/25 22:55 325 MG Ondansetron HCl 4 mg Q4HP PRN IV 07/06/25 23:00 Enoxaparin Sodium 40 mg DAILY SC 07/06/25 23:00 07/10/25 09:29 40 MG Vancomycin HCl 0 ml @ 0 mls/hr UD IV 07/06/25 23:00 Cefepime HCl 50 ml @ 12.5 mls/hr Q12HR IV 07/07/25 10:00 07/10/25 09:24 12.5 MLS/HR Oseltamivir Phosphate 75 mg Q12HR PO 07/07/25 10:00 07/12/25 09:59 07/10/25 09:30 75 MG Empaglifozin 10 mg DAILY PO 07/07/25 10:00 07/10/25 09:31 10 MG Metoprolol Succinate 25 mg DAILY PO 07/07/25 10:00 07/10/25 09:30 25 MG Furosemide 20 mg DAILY IV 07/07/25 10:00 07/10/25 09:28 20 MG Levothyroxine Sodium 175 mcg QAM@0600 PO 07/07/25 06:00 07/10/25 05:41 175 MCG Ergocalciferol 50,000 unit Q7D PO 07/07/25 01:00 07/07/25 01:00 50,000 UNIT Erythromycin 1 applic Q4HR OP 07/07/25 06:00 07/10/25 05:39 1 APPLIC Guaifenesin/ Codeine Phosphate 5 ml Q4HPRN PRN PO 07/07/25 03:30 07/09/25 22:54 5 ML Ipratropium [place] 0.5 mg Q6HR NEB 07/07/25 06:00 07/10/25 07:33 0.5 MG Levalbuterol HCl 1.25 mg Q6HR NEB 07/07/25 06:00 07/10/25 07:33 1.25 MG Losartan Potassium 25 mg DAILY PO 07/07/25 10:00 07/10/25 09:30 25 MG Spironolactone 25 mg DAILY PO 07/07/25 10:00 07/10/25 09:31 25 MG Clopidogrel Bisulfate 75 mg DAILY PO 07/07/25 10:00 07/10/25 09:30 75 MG Vancomycin HCl 250 ml @ 200 mls/hr Q12H IV 07/10/25 08:00 07/10/25 09:24 200 MLS/HR Azithromycin 250 ml @ 125 mls/hr DAILY@0800 IV 07/11/25 08:00 Examination General: Patient alert and oriented in person, place and time. Patient following commands. Presents mild distress HEENT: Bilateral conjunctival erythema with purulent discharge from right eye. Pterygium present in the right eye. Erythema of posterior pharyngeal wall. Respiratory/pulmonary: On 3 L oxygen by nasal cannula. Decreased sounds in both lobes. No associated wheeze or crackle heard Cardiovascular: S1, S2, S3, diastolic murmur along left heart border. Abdomen: Abdomen nondistended, there is no pain to palpation in any of the abdominal quadrants, no palpable masses. Extremities: There is no peripheral edema present at the lower extremities. Skin: Scaly silver rash in left and right elbow, right arm, as well as in bilateral extremities more in the knee region Neurological: Intact cranial nerves with no focal neurologic deficits laboratory and microbiology Laboratory Tests 07/10/25 06:38 Test 07/10/25 06:38 Range/Units Serum Glucose 211 H 74-106 mg/dL Microbiology Date/Time Source Procedure Growth Status 07/07/25 02:00 Sputum Gram Stain - Final Complete 07/07/25 02:00 Sputum Respiratory Culture - Final Complete 07/06/25 20:56 Voided Urine Urine Culture - Final Complete 07/06/25 18:50 Blood Blood Culture - Preliminary NO GROWTH AFTER 72 HOURS OF INCUBATION. Resulted Labs and/or images reviewed: Labs reviewed by me, Image(s) reviewed by me Problem List/Assessment/Plan Problem List/Assessment/Plan #Sepsis due to pneumonia Gram-positive/Gram-negative associated with influenza type B #Acute hypoxic respiratory failure due to viral pneumonia with superimposed bacterial pneumonia versus acute CHF #ARDS Chest x-ray shows bilateral patchy opacities and a 5 cm mid lung mass CT angio ruled out pulmonary embolism, shows extensive bilateral peribronchovascular and centrilobular ground-glass opacity. Multiple enlarged lymph nodes, possibly reactive. Med nebulization- ipratropium bromide, albuterol daily has scheduled vancomycin, cefepime 1 g b.i.d. Azithromycin 500 mg IV daily Start oseltamivir 75 mg b.i.d. Holding off IV fluids boluses in context of HFrEF SpO2/FiO2 is 287 (less than 315). methylprednisolone 40 mg IV b.i.d. Sputum gm stain shows Gram-positive cocci in pair, Gram-negative rods, Gram- positive rods Respiratory culture preliminary shows many growth normal oropharyngeal celeste Blood culture, sputum culture repeat ordered on 07/10/2025, pending #Acute on Chronic diastolic heart failure (HFrEF with LVEF 35% on 12/2023) #Status post Mitral clip placement #History of Hinds syndrome X-ray shows cardiomegaly with pulmonary congestion BNP 146 Echocardiogram, pending Continue GDMT with losartan, empagliflozin, metoprolol succinate Continue furosemide 20 mg IV daily #Ruled out pulmonary embolism #Possible lung mass/ multiple enlarged reactive lymph nodes CT angio ruled out pulmonary embolism, shows extensive bilateral peribronchovascular and centrilobular ground-glass opacity. Multiple enlarged lymph nodes, possibly reactive. Follow-up CT in 3 months as outpatient with PCP #Bacterial Conjunctivitis Erythromycin q4 intraocular #Hypothyroidism TSH 70.75; low T4, T3 Continue levothyroxine 175 mcg home dose; Non-compliant #Psoriatic arthritis Psoriasis Elevated CRP Managed conservatively F/up with [facility] outpatient (last seen 2 years ago) #prediabetic, A1c 6.1 History of impaired fasting glucose Monitor blood glucose Diabetes education #Obesity CHIVO BMI 37.8 Counseled on lifestyle and diet Uses at home 3 L oxygen HS as needed. Monitor for CHIVO complication, consider CPAP if needed #Microcytic hypochromic anemia Iron 14, ferritin 144.9, % saturation 3.8, folic acid 15.38 1 dose of IV iron given stool occult blood ordered, pending ferrous sulphate 325mg po daily once #Vitamin-D deficiency Repleted #Hypokalemia Potassium supplemented Continue monitoring #Transaminitis Hepatitis panel ordered #Cannabinoid use disorder Toxicology positive for cannabinoids Advised absolute cannabis cessation DIET: Cardiac diet DVT PROPHYLAXIS: Lovenox CODE STATUS: Goals of care discussed with patient at bedside for more than 38 minutes. Full code DISPOSITION: Med/surge Patient's status and plan discussed with the patient. Case discussed with Dr. Noel. Plan discussed with: Patient, Other (rn) Dietary Evaluation Review Recommendations by RD: Decrease Calorie Intake Comments: Nutrition Recommendation: 1) CCHO 60 + cardiac diet 2) Refer [employer] Salesperson for diabetes education as A1c 6.1% Expected Outcomes/Goals: To meet >75% estimated needs Lab values to improve Fu 3-5 days MARIO DONG RESIDENT Jul 10, 2025 11:59
[2025-07-10] MEDS: AZITHROMYCIN 500MG/ 250ML 250 ML IV ONE (13:43)
[2025-07-10] MEDS ORDERED: DOXY-346 PO (14:36)
[2025-07-10] MEDS ORDERED: LEVO500T91 PO (14:36)
--- NOTE | 2025-07-10 15:26 | DVHDSRES ---
Discharge Summary Date of Admission Resident Creating Document: MARIO DONG RESIDENT Jul 06, 2025 at 22:52 Date of Discharge: Jul 10, 2025 Admitting Diagnosis Abdominal pain Labs/Diagnostic Data: Laboratory Results Test 07/10/25 06:38 07/09/25 04:58 07/08/25 04:49 07/07/25 06:00 White Blood Count 19.4 10^3/uL (4.4-10.8) Red Blood Count 4.69 10^6/uL (4.0-5.20) Hemoglobin 11.6 g/dL (12.2-16.2) Hematocrit 35.2 % (36.0-46.0) Mean Corpuscular Volume 75.1 fL (80.0-100.0) Mean Corpuscular Hemoglobin 24.7 pg (28.0-32.0) Mean Corpuscular Hemoglobin Concent 32.9 g/dL (32.0-36.0) Red Cell Distribution Width 18.0 % (11.8-14.3) Platelet Count 256 10^3/uL (140-450) Mean Platelet Volume 6.8 fL (6.9-10.8) Neutrophils (%) (Auto) 87.7 % (37.0-80.0) Lymphocytes (%) (Auto) 9.0 % (10.0-50.0) Monocytes (%) (Auto) 3.1 % (0.0-12.0) Eosinophils (%) (Auto) 0.1 % (0.0-7.0) Basophils (%) (Auto) 0.1 % (0.0-2.0) Neutrophils # (Auto) 17.0 10 ^3/uL (1.6-8.6) Lymphocytes # (Auto) 1.7 10 ^3/uL (0.4-5.4) Monocytes # (Auto) 0.6 10 ^3/uL (0-1.3) Eosinophils # (Auto) 0 10 ^3/uL (0-0.8) Basophils # (Auto) 0 10 ^3/uL (0-0.2) Nucleated Red Blood Cells 0.0 % Sodium Level 136 mmol/L (136-145) Potassium Level 4.1 mmol/L (3.5-5.1) Chloride Level 101 mmol/L (98-107) Carbon Dioxide Level 22 mmol/L (20-31) Anion Gap 13 (5-15) Blood Urea Nitrogen 17 mg/dL (9-23) Creatinine 0.80 mg/dL (0.550-1.02) Glomerular Filtration Rate Calc 100 mL/min (>90) BUN/Creatinine Ratio 21.3 (10.0-20.0) Serum Glucose 211 mg/dL (74-106) Calcium Level 8.9 mg/dL (8.7-10.4) Vancomycin Level Trough 10.1 ug/mL (5-10) Differential Total Cells Counted 100.0 (100) Neutrophils % (Manual) 77 (37.0-80.0) Band Neutrophils % (Manual) 9 Lymphocytes % (Manual) 8 (10.0-50.0) Monocytes % (Manual) 2 (0-12) Eosinophils % (Manual) 0 (0-7) Basophils % (Manual) 0 (0.0-2.0) Metamyelocytes % (manual) 4 Myelocytes % (Manual) 0 Promyelocytes % (Manual) 0 Blast Cells % (Manual) 0 Reactive Lymphocytes 0 Platelet Estimate Adequate Random Vancomycin Level 3.2 ug/mL (5-10) Stool Occult Blood Negative (Negative) Stool Occult Blood Sample #3 (Negative) Test 07/07/25 04:40 07/07/25 00:25 07/06/25 23:52 07/06/25 22:04 Total Bilirubin 0.7 mg/dL (0.2-1.0) Aspartate Amino Transferase (AST) 56 U/L (13-40) Alanine Aminotransferase (ALT) 44 U/L (7-40) Alkaline Phosphatase 194 U/L (46-116) Total Protein 8.2 g/dL (5.7-8.2) Albumin 4.9 g/dL (3.2-4.8) Hepatitis A IgM Antibody Negative Hepatitis B Surface Antigen Negative (Negative) Hepatitis B Core IgM Antibody Negative (Negative) Hepatitis C Antibody Negative (Negative) Reticulocyte Count (auto) 1.56 % (0.5-1.5) Haptoglobin 379 mg/dL (33-278) Iron Level 14 ug/dL (50-170) Total Iron Binding Capacity 370 ug/dL (250-425) Percent Iron Saturation 3.8 % (15-50) Ferritin 144.9 ng/mL (10-291) Folic Acid 15.38 ng/mL (>5.38) Blood Gas Specimen Type Arterial Blood Gas Sample Site Left radial Blood Gas Patient Temperature 37.0 Arterial Blood Date Drawn [id number] Arterial Blood pH 7.480 (7.350-7.450) Arterial Blood Partial Pressure CO2 29.6 mmHg (32.0-45.0) Arterial Blood Partial Pressure O2 97.6 mmHg (83.0-108.0) Arterial Blood HCO3 21.5 mmol/L (21.0-28.0) Arterial Blood Oxygen Saturation 97.7 % (94.0-98.0) Arterial Blood Base Excess -1.0 mmol/L (-2.0-3.0) Arterial Blood Oxyhemoglobin 96.9 % (94.0-98.0) Arterial Blood Carboxyhemoglobin 0.4 % (0.5-1.5) Arterial Blood Methemoglobin 0.4 % (0.0-1.5) Scott Test Modified Blood Gas Total Hemoglobin 12.10 g/dL (12.0-16.0) Blood Gas Liter Flow 3.00 Blood Gas Modality Nasal cannula FiO2 % 32.0 Ammonia < 10 umol/L (11-32) Test 07/06/25 21:40 07/06/25 20:56 07/06/25 20:49 07/06/25 18:43 Prothrombin Time 11.1 sec (9.3-11.8) Prothrombin Time INR 1.05 (0.9-1.15) Activated Partial Thromboplast Time 30.2 SEC (24.5-34.5) Hemoglobin A1c 6.1 % A1C (<5.7) Troponin I High Sensitivity 6 ng/L (</=34) Urine Color Light-yellow (Yellow) Urine Clarity Clear (Clear) Urine pH 6.0 (5.0-9.0) Urine Specific [place] 1.017 (1.001-1.035) Urine Protein 2+ (Negative) Urine Ketones Negative (Negative) Urine Blood 1+ /uL (Negative) Urine Nitrite Negative (Negative) Urine Bilirubin Negative (Negative) Urine Urobilinogen Normal mg/dL (Negative) Urine Leukocyte Esterase Negative /uL (Negative) Urine RBC 1 /hpf (0 - 4) Urine Microscopic WBC 2 /HPF (0-5) Urine Squamous Epithelial Cells Few /hpf (<5) Urine Bacteria None seen /hpf (None Seen) Urine Mucus Few (None Seen) Urine Glucose Normal mg/dL (Normal) Urine Opiates Screen Neg (NEGATIVE) Urine Fentanyl Screen Neg (NEGATIVE) Urine Barbiturates Screen Neg (NEGATIVE) Urine Phencyclidine Screen Neg (NEGATIVE) Urine Amphetamines Screen Neg (NEGATIVE) Urine Benzodiazepines Screen Neg (NEGATIVE) Urine Cocaine Screen Neg (NEGATIVE) Urine Cannabinoids Screen Pos (NEGATIVE) Influenza Type A Antigen Negative (Negative) Influenza Type B Antigen Positive (Negative) SARS-CoV-2 Antigen (Rapid) Negative (NEGATIVE) Lactic Acid Level 1.3 mmol/L (0.4-2.0) Phosphorus Level 2.9 mg/dL (2.4-5.1) Magnesium Level 2.1 mg/dL (1.6-2.6) C-Reactive Protein High Sensitivity > 20.00 mg/dL (<1.0) B-Type Natriuretic Peptide 146.14 pg/mL (0-100) Triglycerides Level 144 mg/dL (< 150) Cholesterol Level 227 mg/dL (< 200) LDL Cholesterol 163 mg/dL (< 100) HDL Cholesterol 54 mg/dL (40-59) Lipase 37 U/L (12-53) Vitamin B12 Level 285 pg/mL (211-911) Vitamin D 25-Hydroxy 6.0 ng/mL (30.0-100) Thyroid Stimulating Hormone (TSH) 70.75 uIU/mL (0.55-4.78) Free Thyroxine (T4) Calculated 0.22 ng/dL (0.89-1.76) Free Triiodothyronine (T3) pg/mL < 0.2 pg/mL (2.3-4.2) Other Laboratory Tests 07/10/25 06:38 Brief Hx & Hospital Course: Zuri Humphreys, 34-year-old female with past medical history of HFrEF with MR s/p mitral clip, hypothyroidism, Hinds syndrome, psoriatic arthritis, CHIVO, presented to the ER with chief complain of shortness of breaths, cough with phlegm. She reported her symptoms started 3 days back, she began having shortness of the breath which was associated with productive cough with 1 cup greenish phlegm produced daily. It was associated with headache, sore throat, fever, chills. Today, she experienced increasing difficulty in breathing and found herself gasping for air, which urged her visit to the ER. She reported her 5-year-old nephew was sick with whooping cough. She and her nephew are immunized till date. Denies history of travel outside the country recently. She also complains of watering of the right eye which is sticky and slightly itchy for the same duration of time that the shortness of breath has been present. Previous hospitalization: In May 2025 for mitral clip placement PMHx: HFrEF with MR s/p /mitral clip, hypothyroidism, Hinds syndrome, psoriatic arthritis, CHIVO PSHx: Mitral clip placement 05/2025 Family history: Grandmother- uterine cancer, grandfather- lung cancer Social history: Occasional alcohol, marijuana use. Denies smoking. Lives in home with family. Not currently sexually active. Full code, next of kin sister Bobbi. Home medication: Metoprolol succinate, dapagliflozin, furosemide, losartan, levothyroxine Allergic history: No known allergies Brief history of hospitalization: Patient came in for shortness of breath. we did a chest x-ray which showed bilateral patchy opacities and a [address] angio was done which ruled out pulmonary embolism but it showed extensive bilateral peribronchial vascular and centrilobular ground-glass opacity. Multiple enlarged lymph nodes, possibly reactive. We gave the patient med nebulizations ipratropium bromide, albuterol daily scheduled. Started on vancomycin and cefepime 1 g b.i.d. and COVID and flu test was done. Patient came positive for influenza type B and oseltamivir 75 mg b.i.d. has been given throughout the hospital stay. Since patient has a history of ROS we held off IV fluid boluses. We gave the patient expectorant as well to help her with her cough. Gram stain of the sputum showed Gram-positive rods, Gram-negative rods and Gram-positive cocci in pairs so we continued the antibiotics. Respiratory culture was sent and preliminary showed many growth normal oropharyngeal celeste. During her stay patient was given 2-3 L of oxygen to maintain saturation and she has been feeling better daily. For HFrEF with ejection fraction 35% in 2023, status post Mitral Clip placement and history of Hinds syndrome we continue to monitor the patient in continued her GDM T with losartan, empagliflozin, metoprolol succinate as well as furosemide 20 mg IV daily. BNP was 146 an x-ray showed cardiomegaly with pulmonary congestion. Since CT angio showed multiple enlarged lymph nodes possibly reactive, we have discussed with the patient and counseled her regarding follow up CT in 3 months as outpatient with PCP to rule out any lung malignancy. For patient's bilateral conjunctivitis which she presented in the emergency department we gave her erythromycin intra-ocular eyedrops q.4. we found in the labs that patient had hypo sciatic hypochromic anemia and iron panel was sent out which showed iron- deficiency anemia for which we gave IV iron once and ferrous sulfate 325 mg per orally daily. For her comorbidities that were present, we continued home medications levothyroxine 175 mcg for hypothyroidism. During examination we saw that patient had psoriatic rash and we have asked her to follow up patient with a garage supervisor. We repleted vitamin-D and potassium as labs showed low levels. Patient takes cannabinoid and we have counseled her regarding the need of cessation is we saw toxicology showed positive for cannabis. Patient is also prediabetic with A1c of 6.1 we have counseled her regarding lifestyle modification, diet, need of exercise. Patient is now stable for discharge as she is has markedly improved. We have discussed and counseled her regarding the need of a difference of medication, meeting her primary care physician, following up at discharge clinic and Need of a repeat CT scan of the chest to rule out malignancy in 3 months. She has communicated understanding and agreed to the discharge plan. She will be discharged with doxycycline 100 mg twice a day and levofloxacin 500 mg daily for the next 3 days. Patient has communicated understanding General: Patient alert and oriented in person, place and time. Patient following commands. Presents mild distress HEENT: Bilateral conjunctival erythema with purulent discharge from right eye. Pterygium present in the right eye. Erythema of posterior pharyngeal wall. Respiratory/pulmonary: On 3 L oxygen by nasal cannula. Decreased sounds in both lobes. No associated wheeze or crackle heard Cardiovascular: S1, S2, S3, diastolic murmur along left heart border. Abdomen: Abdomen nondistended, there is no pain to palpation in any of the abdominal quadrants, no palpable masses. Extremities: There is no peripheral edema present at the lower extremities. Skin: Scaly silver rash in left and right elbow, right arm, as well as in bilateral extremities more in the knee region Neurological: Intact cranial nerves with no focal neurologic deficits Operations or Procedures CHEST RADIOGRAPH Indication: fever, cough, sob IMPRESSION: Cardiomegaly with pulmonary vascular congestion and bilateral patchy airspace opacities. Bilateral pulmonary nodular airspace opacities. Follow-up to resolution to exclude underlying mass/ metastatic disease. A 5.2 cm right midlung masslike opacity. Recommend CT chest to characterize. CTA Chest with intravenous contrast INDICATION: resp symtpoms IMPRESSION: No pulmonary embolism. Extensive bilateral peribronchovascular and centrilobular ground glass opacities and more dense focal airspace disease concerning for infection. Multiple enlarged lymph nodes, presumably reactive although difficult to exclude an underlying lymphoproliferative disorder. Suggest follow-up CT in 3 months for reassessment. CXRP - CHEST PORTABLE INDICATION: sob IMPRESSION: 1. Stable Bilateral pulmonary nodular airspace opacities. Follow-up to resolution to exclude underlying mass/ metastatic disease. A 5.2 cm right midlung masslike opacity. Recommend CT chest to characterize.. Condition at Discharge: Stable Final Diagnosis/Problems List #Sepsis due to pneumonia Gram-positive/Gram-negative associated with influenza type B #Acute hypoxic respiratory failure due to viral pneumonia with superimposed bacterial pneumonia versus acute CHF #ARDS #Acute on Chronic diastolic heart failure (HFrEF with LVEF 35% on 12/2023) #Status post Mitral clip placement #History of Hinds syndrome #Ruled out pulmonary embolism #Possible lung mass/ multiple enlarged reactive lymph nodes #Bacterial Conjunctivitis #Hypothyroidism #Psoriatic arthritis #prediabetic, A1c 6.1 #Obesity #Microcytic hypochromic anemia #Vitamin-D deficiency #Hypokalemia #Transaminitis #Cannabinoid use disorder Discharge Disposition: Home Discharge Instruct/Medications Diet: Consistent carbohydrate, Cardiac 2g Na,low cholest Activity: No Restrictions, As Tolerated Follow Up/Referral: f/u with pcp in 10 days f/u at [facility] 2 weeks Medications: doxycycline 100mg twice a day for 3 days levofloxacin 500mg once daily for 3 days resume all home medications Scheduled Dapagliflozin Propanediol (Farxiga), 10 MG PO DAILY, (Reported) Doxycycline (Monohydrate) (Doxycycline), 100 MG PO BID Furosemide (Furosemide), 40 MG PO DAILY Guaifenesin (Guaifenesin), 100 MG PO TID Levofloxacin Hemihydrate (Levofloxacin), 1 TAB PO DAILY Levothyroxine Sodium (Levothyroxine Sodium), 175 MCG PO DAILY Losartan Potassium (Losartan Potassium), 25 MG PO DAILY Meclizine Hcl (Meclizine Hcl), 25 MG PO DAILY, (Reported) Meloxicam (Meloxicam), 1 TAB PO DAILY Methylprednisolone (Medrol Dosepak), 4 MG PO UD Metoprolol Succinate (Toprol Xl), 25 MG PO DAILY Discharge Statement: "Patient was advised to return to the ER or call 911 if any headaches, dizziness, shortness of breath, chest pain, abdominal pain, bleeding, fevers, or worsening of medical condition. Patient was counseled about treatment plan, medications, possible side effects, patientverbalized understanding. All questions were answered to the best of my ability. This discharge took greater then 30 minutes in planning, reviewing documentation, counseling the patient, and discussing with other team members." ASSESSMENT ASSESSMENT Assessment Acute hypoxic respiratory failure due to viral pneumonia with superimposed bacterial pneumonia Date of Service: Jul 10, 2025 Billing Provider: LAKE GUADARRAMA MD Common Visit Codes: 30943-VTB/OBS DISCH DAY >30min MARIO DONG Jul 10, 2025 15:26 LAKE GUADARRAMA MD Jul 14, 2025 23:36
[2025-07-10] MEDS: VANCOMYCIN 1.5GM/250ML 250 ML IV SCH (16:42)
[2025-07-11] MEDS ORDERED: AZITHROMYCIN 500MG/ 250ML 250 ML IV SCH (08:00)
== END 2025-07-10 17:48 | disposition home or self-care (01) | DRG 720 ==
LOC: ER 17:31 → OVERFLOW 22:52 → EAST 07-07 11:05 → TELE-EAST 07-08 21:50
PROVIDERS: ADMIT Student in an Organized Health Care Education/Training Program; ATTEND Student in an Organized Health Care Education/Training Program
DX: A41.59 Other Gram-negative sepsis (principal); J80 Acute respiratory distress syndrome; J15.69 Pneumonia due to other Gram-negative bacteria; I50.33 Acute on chronic diastolic (congestive) heart failure; J10.08 Influenza due to other identified influenza virus with other specified pneumonia; J15.9 Unspecified bacterial pneumonia; D50.9 Iron deficiency anemia, unspecified; E11.9 Type 2 diabetes mellitus without complications; J12.9 Viral pneumonia, unspecified; H10.9 Unspecified conjunctivitis; L40.50 Arthropathic psoriasis, unspecified; E66.9 Obesity, unspecified; G47.33 Obstructive sleep apnea (adult) (pediatric); E55.9 Vitamin D deficiency, unspecified; E87.6 Hypokalemia; E03.9 Hypothyroidism, unspecified; L40.8 Other psoriasis; R74.01 Elevation of levels of liver transaminase levels; Q96.9 Turner's syndrome, unspecified; Z68.37 Body mass index [BMI] 37.0-37.9, adult; Z79.899 Other long term (current) drug therapy
CPT/HCPCS: 36415; 36600; 71045; 71275; 80048; 80053; 80061; 80074; 80202; 80307; 81001; 82140; 82270; 82306; 82607; 82728; 82746; 82805; 83010; 83036; 83540; 83550; 83605; 83690; 83735; 83880; 84100; 84439; 84443; 84481; 84484; 85007; 85025; 85027; 85045; 85610; 85730; 86141; 87040; 87070; 87086; 87205; 87278; 87426; 87804; 93005; 94640; 96365; 96367; 96375; G0378; J1756